=== PATIENT | female | born 1940 | race American Indian/Alaskan Native ===

== ENCOUNTER → 2017-11-28 09:44 | Outpatient (CLI) | payer MEDICARE, OTHER, SELFPAY ==
[2017-11-28 11:09] LABS: BUN Creatinine Ratio 22.9 (6-22); Blood Urea Nitrogen 48 mg/dL (7-17); Calcium 8.4 mg/dL (8.4-10.2); Carbon Dioxide 23 mmol/L (22-32); Chloride 111 mmol/L (98-107); Glucose 69 mg/dL (80-110); HEMOLYSIS < 15 (0-50); Potassium 4.3 mmol/L (3.4-5.1); Sodium 144 mmol/L (137-145)
== END ==
PROVIDERS: Family Provider Family Medicine; PCP Family Medicine; Visit Provider Family Medicine
DX: N18.4 Chronic kidney disease, stage 4 (severe) (principal); R60.9 Edema, unspecified
CPT/HCPCS: 36415; 80048; 83880

== ENCOUNTER → 2017-12-05 11:03 | Outpatient (CLI) | payer MEDICARE, OTHER, SELFPAY ==
--- NOTE | 2017-12-05 11:09 | DI.RAD.S_ITS ---
PROCEDURE: XR CHEST 2V INDICATIONS: 77 year-old female with shortness of breath and edema. TECHNIQUE: 2 views of the chest were acquired. COMPARISON: [facility], , ABDOMEN ACUTE SERIES, 02/17/2011, 0:07. [facility], CHEST 2 VIEW, 02/04/2008, 16:14. [facility], CHEST 2 VIEW, 12/01/2006, 13:10. FINDINGS: Surgical changes and devices: None. Lungs and pleura: There is trace basal left pleural effusion. Lungs appear clear, without pulmonary edema. No pneumothorax. Mediastinum: Mediastinal contours are normal. There is newly apparent cardiomegaly. There is aortic atherosclerosis. Bones and chest wall: No suspicious bony abnormalities. Soft tissues appear unremarkable. IMPRESSION: 1. Cardiomegaly appears new since 2010. 2. Trace basal left pleural effusion is of uncertain etiology. Dictated by: David Ford M.D. on 12/05/2017 at 12:22 Approved by: David Ford M.D. on 12/05/2017 at 12:24
== END ==
PROVIDERS: Family Provider Family Medicine; PCP Family Medicine; Visit Provider Family Medicine
DX: R06.02 Shortness of breath (principal); R60.9 Edema, unspecified; I51.7 Cardiomegaly
CPT/HCPCS: 71046

== ENCOUNTER → 2018-01-02 11:14 | Outpatient (CLI) | payer MEDICARE, OTHER, SELFPAY ==
[2018-01-02 12:27] LABS: Add Manual Diff / Slide Review NO; Basophils Percent Auto 1.1 % (0-2); Hematocrit 37.5 % (36-46); Hemoglobin 12.5 g/dL (12.0-16.0); Lymphocytes Percent Auto 18.2 % (25-40); Mean Corpuscular HGB Conc 33.2 % (30-36); Mean Corpuscular Hemoglobin 30.1 PG (26-34); Mean Corpuscular Volume 90.5 fL (80-100); Monocytes Percent Auto 10.8 % (3-14); Neutrophils Absolute Auto 4100 /uL (3000-5900); Neutrophils Percent Auto 65.9 % (50-75); Platelet Count 259 X10^3/uL (150-400); Red Blood Cell Count 4.14 X10^6/uL (4.0-5.2); White Blood Cell Count 6.2 X10^3/uL (4.5-11.0)
[2018-01-02 13:04] LABS: Alanine Aminotransferase 36 IU/L (9-52); Albumin 2.8 g/dL (3.5-5.0); Alkaline Phosphatase 88 U/L (38-126); Aspartate Aminotransferase 46 IU/L (14-36); BUN Creatinine Ratio 12.7 (6-22); Bilirubin Total 0.5 mg/dL (0.2-1.3); Blood Urea Nitrogen 38 mg/dL (7-17); Calcium 8.1 mg/dL (8.4-10.2); Carbon Dioxide 28 mmol/L (22-32); Chloride 108 mmol/L (98-107); Estimated Glomerular Filt Rate 15.2 mL/min (>60); Globulin 2.7 g/dL (1.7-4.1); Glucose 70 mg/dL (80-110); HEMOLYSIS < 15 (0-50); Phosphorous 4.8 mg/dL (2.8-4.1); Potassium 3.3 mmol/L (3.4-5.1); Sodium 144 mmol/L (137-145); Total Protein 5.5 g/dL (6.3-8.2)
[2018-01-02 15:13] LABS: Vitamin D 25 Hydroxy (D3) < 13.0 ng/mL (30.0-100.0)
[2018-01-03 15:23] LABS: Parathyroid Hormone Int 163 pg/mL (14-64)
== END ==
PROVIDERS: PCP Family Medicine; Visit Provider Family Medicine
DX: R63.5 Abnormal weight gain (principal); E11.9 Type 2 diabetes mellitus without complications; J44.9 Chronic obstructive pulmonary disease, unspecified; N18.4 Chronic kidney disease, stage 4 (severe); I10 Essential (primary) hypertension
CPT/HCPCS: 36415; 80053; 82306; 83880; 83970; 84100; 85025

== ENCOUNTER → 2018-01-03 13:16 | Outpatient (CLI) | payer MEDICARE, OTHER, SELFPAY ==
--- NOTE | 2018-01-03 13:20 | DI.ECHO.S_ITS ---
[facility]---------+ [facility] +---------+ : : [address] : : : : [id number] : : : : Phone: [phone] Echocardiogram Report + + :Name: DOMINIC TARANGO Study Date: 01/03/2018 Height: 59 in : :[facility] Weight: 294 lb : : Gender: Female BSA: 2.2 m2 : :: 1940 Age: 77 yrs BP: 160/80 mmHg: :Reason For Study: Cardiomegaly : : Performed By: Vania Rodriguez : :Referring: NAGI APODACA : + + Interpretation Summary Sinus bradycardia; heart rate is 48-54 bpm. Normal LV size and wall thickness. Normal wall motion and LV systolic function. EF is 60-65%. stage I diastolic dysfunction. Moderate biatrial enlargement Otherwise normal chamber sizes. Aortic sclerosis without stenosis. Mild MAC with normal mitral valve leaflets; mild associated mitral regurgitation. Compared to prior study 11/14/2008 , sinus bradycardia is new. Procedure: A two-dimensional transthoracic echocardiogram with color flow and Doppler was performed. The study quality was technically adequate. Comparison is made with the echocardiogram of 11-14-08. The heart rate ranged between 49-62 bpm during the study. Left Ventricle: The left ventricle is normal in size, wall thickness, and systolic function without any focal wall motion abnormalities. The ejection fraction is estimated to be 60-65%. Right Ventricle: The right ventricle grossly appears normal in size with probable normal systolic function. Atria: The left atrium is moderately dilated. The right atrium is moderately dilated. A patent foramen ovale is suspected. Mitral Valve: The mitral valve leaflets appear mildly thickened, but open well. There is mild mitral regurgitation. Aortic Valve: There is moderate aortic valve sclerosis. Leaflet mobility is mildly reduced. The calculated aortic valve area is 1.4 cm2. The peak aortic velocity is 2.1 m/sec. The aortic valve mean gradient is 10 mmHg. Severity ratio is 0.58. No aortic regurgitation is present. Tricuspid Valve: The tricuspid valve is normal in structure and function. There is trace tricuspid regurgitation. The right ventricular systolic pressure is estimated at 37 mmHg assuming a right atrial pressure of 3 mm Hg. Pulmonic Valve: The pulmonic valve is not well visualized. There is trace pulmonic regurgitation. Great Vessels: The aortic root is normal size. The ascending aorta is at the upper limits of normal in size. The IVC is of normal diameter and collapses greater than 50% with a sniff. This suggests a low right atrial pressure of 3 mm Hg. Pericardium/ Pleura There is no pericardial effusion. There is no pleural effusion. MMode/2D Measurements & Calculations LVIDd: 5.0 cm LVOT diam: 2.0 cm LVIDs: 3.1 cm Ao root diam: 3.0 cm FS: 38.8 % Aortic Jxn: 2.7 cm EPSS: 0.98 cm asc Aorta Diam: 3.4 cm IVSd: 0.96 cm Ao Arch Diam (Prox Trans): 2.2 cm LVPWd: 0.98 cm LV starr. diameter/BSA (cm/m^2): 2.3 LV sys. diameter/BSA (cm/m^2): 1.4 LA dimension: 4.0 cm RA long axis: 5.9 cm LA A2 area: 29.0 cm2 RA area: 26.3 cm2 LA A4 area: 28.0 cm2 RA vol: 99.8 ml LA length (vol): 6.7 cm RA : 46.0 ml/m2 LA vol: 102.4 ml IVC diam: 1.3 cm LA vol index: 47.1 ml/m2 RVDd major: 5.4 cm RVD1 (basal): 4.0 cm RVD2 (mid): 3.5 cm Doppler Measurements & Calculations Ao V2 max: 209.4 cm/sec LVOT Max Bismark: 93.1 cm/sec Ao V2 mean: 141.1 cm/sec LV V1 max P.5 mmHg Ao max P.5 mmHg LV V1 VTI: 32.5 cm Ao mean P.5 mmHg SHANNA(I,D): 1.9 cm2 Ao V2 VTI: 56.3 cm SHANNA(V,D): 1.4 cm2 sev ratio: 0.58 SHANNA indexed to BSA (cm^2/m^2): 0.86 MV E max bismark: 105.0 cm/sec TR max bismark: 290.1 cm/sec MV A max bismark: 129.7 cm/sec TR max P.7 mmHg MV E/A: 0.81 PA V2 max: 103.2 cm/sec Med Peak E' Bismark: 2.9 cm/sec PA V2 mean: 64.9 cm/sec E/E' med: 35.8 PA mean P.0 mmHg Lat Peak E' Bismark: 3.9 cm/sec PA Accel Time: 0.16 sec E/E' lat: 27.0 E/e' average: 31.4 MV dec time: 0.14 sec MV P1/2t: 44.4 msec MR ERO: 0.12 cm2 MV P1/2t max bismark: 105.3 cm/sec MR flow rate: 67.3 cm3/sec MVA(P1/2t): 5.0 cm2 MR PISA radius: 0.53 cm Reading Physician:06:58 PM
[2018-01-03 14:00] LABS: Appearance Urine UA CLEAR; Bilirubin Urine UA NEGATIVE (NEGATIVE); Color Urine UA YELLOW; Glucose Urine UA NEGATIVE (Normal); Ketones Urine UA NEGATIVE (NEGATIVE); Leukocyte Esterase Urine UA 1+ (NEGATIVE); Nitrite Urine UA POSITIVE (Negative); Occult Blood Urine UA 1+ (Negative); Protein Urine UA 3+ (Negative); Urobilinogen Urine UA 0.2 E.U./dL (0.2); pH Urine UA 6.5 (4.5-8.0)
[2018-01-03 14:33] LABS: RBC Urine 1-5/HPF (0-5/HPF); Squamous Epithelial Cell Urine 1-5 /HPF; WBC Urine 10-30/HPF (0-5/HPF)
[2018-01-03 14:34] LABS: Bacteria Urine Many (>30); Culture Indicated Urine Specimen Cultured
[2018-01-03 15:06] LABS: Creatinine Urine Random 37.8 mg/dL
[2018-01-03 15:55] LABS: Protein (Total) Urine Random 901 mg/dL (0-12); Protein Creatinine Ratio Urine 23.83 GRAM/24H
== END ==
PROVIDERS: Family Provider Family Medicine; PCP Family Medicine; Visit Provider Family Medicine
DX: I08.0 Rheumatic disorders of both mitral and aortic valves (principal); R06.02 Shortness of breath; R63.5 Abnormal weight gain; E11.22 Type 2 diabetes mellitus with diabetic chronic kidney disease; I12.9 Hypertensive chronic kidney disease with stage 1 through stage 4 chronic kidney disease, or unspecified chronic kidney disease; N18.4 Chronic kidney disease, stage 4 (severe)
CPT/HCPCS: 81001; 82570; 84156; 87077; 87086; 87186; 93306

== ENCOUNTER 2018-01-13 15:34 | Inpatient (IN) | payer MEDICARE, OTHER, SELFPAY ==
[2018-01-13] VITALS (7 sets, daily range): BP systolic 131–176; BP diastolic 60–93; PULSE 59–94; RESP 16–18; TEMP 36.7–37; O2SAT 94–98; BMI 57.4
--- NOTE | 2018-01-13 16:05 | DI.RAD.S_ITS ---
PROCEDURE: XR CHEST 2V INDICATIONS: weakness TECHNIQUE: 2 views of the chest were acquired. COMPARISON: [facility], CR, CHEST 2 VIEW, 02/04/2008, 16:14. [facility], CT, THORAX WITHOUT CONTRAST, 05/20/2015, 15:16. [facility], CR, XR CHEST 2V, 12/05/2017, 10:51. FINDINGS: Surgical changes and devices: None. Lungs and pleura: Bibasilar opacities may be infiltrate or atelectasis. No pleural effusions or pneumothorax. Mediastinum: Mediastinal contours are normal. Heart size is normal. Bones and chest wall: No suspicious bony abnormalities. Soft tissues appear unremarkable. IMPRESSION: Bibasilar infiltrates or atelectasis. Dictated by: Stefania House M.D. on 01/13/2018 at 16:19 Approved by: Stefania House M.D. on 01/13/2018 at 16:23
[2018-01-13 16:17] LABS: INR 1.1 (0.9-1.3); Prothrombin Time 12.1 SECONDS (10.1-12.7)
[2018-01-13 16:23] LABS: Alanine Aminotransferase 140 IU/L (9-52); Albumin 2.7 g/dL (3.5-5.0); Alkaline Phosphatase 88 U/L (38-126); Aspartate Aminotransferase 148 IU/L (14-36); BUN Creatinine Ratio 15.5 (6-22); Bilirubin Total 0.5 mg/dL (0.2-1.3); Blood Urea Nitrogen 62 mg/dL (7-17); Calcium 8.3 mg/dL (8.4-10.2); Carbon Dioxide 28 mmol/L (22-32); Chloride 106 mmol/L (98-107); Estimated Glomerular Filt Rate 10.9 mL/min (>60); Globulin 2.7 g/dL (1.7-4.1); Glucose 114 mg/dL (80-110); HEMOLYSIS < 15 (0-50); Lipase 212 U/L (23-300); Magnesium 1.5 mg/dL (1.6-2.3); Potassium 3.6 mmol/L (3.4-5.1); Sodium 144 mmol/L (137-145); Total Protein 5.4 g/dL (6.3-8.2)
[2018-01-13 16:24] LABS: Add Manual Diff / Slide Review NO; Basophils Percent Auto 0.8 % (0-2); Eosinophils Percent Auto 1.5 % (2-4); Hematocrit 36.8 % (36-46); Hemoglobin 12.2 g/dL (12.0-16.0); Lymphocytes Percent Auto 9.8 % (25-40); Mean Corpuscular HGB Conc 33.2 % (30-36); Mean Corpuscular Hemoglobin 30.1 PG (26-34); Mean Corpuscular Volume 90.7 fL (80-100); Monocytes Percent Auto 10.1 % (3-14); Neutrophils Absolute Auto 7600 /uL (3000-5900); Neutrophils Percent Auto 77.8 % (50-75); Platelet Count 293 X10^3/uL (150-400); Red Blood Cell Count 4.06 X10^6/uL (4.0-5.2); Red Cell Distribution Width 14.1 % (11.6-14.8); White Blood Cell Count 9.7 X10^3/uL (4.5-11.0)
[2018-01-13 16:34] LABS: Troponin I 0.115 ng/mL (0.01-0.034)
[2018-01-13] MEDS: ALBUTEROL/IPRATROPIUM 3 ML AMPUL INH (16:34)
[2018-01-13] MEDS: FUROSEMIDE 100 MG/10 ML VIAL 60 MG IV (16:36)
[2018-01-13 16:47] LABS: Creatine Kinase 840 U/L (30-135)
[2018-01-13 16:57] LABS: Lactate (Lactic Acid) 1.2 mmol/L (0.7-2.1)
[2018-01-13 17:08] LABS: Procalcitonin 0.57 ng/mL (<0.5)
[2018-01-13 17:19] LABS: Thyroid Stimulating Hormone 2.84 uIU/mL (0.47-4.68)
--- NOTE | 2018-01-13 17:52 | ED.WEAKNESS ---
HPI - Weakness General Chief complaint: Weakness Stated complaint: Generalized Weakness History of Present Illness HPI Narrative: HPI 77-year-old morbidly obese female with CHF, COPD, presents for evaluation of weakness without further localizing symptoms, patient fell 4 days ago, spent 3 days on the ground, withstood up by EMS, declined transport, and then one day later slid from her bed and was unable to stand again, after which she was transported to the emergency department; during the time the patient spent on the ground she did not take her Lasix. Notes recent weight gain, denies fevers, chills, cough, dysuria, urinary frequency. History obtained from: patient. M/S/F/SocHx notable for: please see HPI; remainder reviewed with patient and in chart. ROS: Negative constitutional, eye, cardiovascular, pulmonary, GI, , MSK, skin, neurologic, psychiatric, endocrine unless noted in the HPI. Exam Gen: Pleasant, non-toxic appearing, resting comfortably. HEENT: Normocephalic, atraumatic Resp: diffuse fine expiratory wheezing with superimposed coarse wet breath sounds, mildly increased work of breathing. Card: Regular rate and rhythm with no murmurs rubs or gallops. No JVD. 1+ bilateral pedal edema. GI: Nontender to palpation throughout all quadrants. Nondistended. : No CVA tenderness to percussion bilaterally. No suprapubic tenderness or palpable masses. MSK: No visible deformities, strength and tone within normal limits. Skin: bilateral distal shins/calves with approximately 1.5 x 1.5 cm superficial skin tears, otherwise normal color with no visible lesions. Neuro: Gen AO x 3, no facial asymmetry, no gaze preference, no slurring of speech. Pupils equal and reactive, EOMI, no facial asymmetry, no nystagmus, phonation intact, SCM 5/5 bilaterally. Cerebellar: bilateral upper extremities without dysmetria. Motor: bilateral 5/5 brokerage purchase and sale clerk strength and intact hand sensation to touch, bilateral 5/5 dorsiflexion/plantarflexion and foot sensation intact to touch. Psych: Mood and affect appropriate. Labs / Imaging (pertinent): WBC 9.7, HB 12.2, PT/INR 1.1, sodium 144, potassium 3.6, creatinine 4.00, magnesium 1.5, AST 148, ALT 140, troponin 0.155, BNP 606, CK 840, Procalcitonin 0.57, TSH 2.84 UA pending CXR: bibasler or infiltrates or atelectasis. EKG: SR at 60 BPM, [place] 158 msec, no new ST segment changes, new LBBB, or T-wave changes that would suggest acute ischemia. MDM Previous chart, nursing note, and vitals reviewed. A: 77-year-old morbidly obese female with CHF, COPD, presents for evaluation of weakness without further localizing symptoms, patient fell 4 days ago, spent 3 days on the ground, withstood up by EMS, declined transport, and then one day later slid from her bed and was unable to stand again, after which she was transported to the emergency department; during the time the patient spent on the ground she did not take her Lasix. Evaluation: * CVA: Examination without evidence of focal neuro deficit and history without evidence of resolved focal neuro deficit making stroke or TIA unlikely. * ACS/UA: Doubt ACS given a nonischemic EKG, mild troponin elevation, suspect demand mediated. Aspirin given. * UTI: pending * Pneumonia: patient without clear cough, no focal infiltrate, elevated procalcitonin, blood cultures drawn, and one dose Levaquin given. * Heme/Lytes/Thyroid: CBC, BMP, and TSH are clinically within normal limits. Patient with hypomagnesemia. 2 g given. * Hypothermia: temperature within normal limits. * Rhabdomyolysis - CK elevated, however not in range for rhabdomyolysis. * MURALI - worsening renal failure. * CHF - coarse wet breath sounds, worsening edema, patient with mist Lasix doses. Given 60 mg IV. * COPD - wheezing, one DuoNeb given. Disposition: admitted for further care. Impression: MURALI, CHF exacerbation, hypomagnesemia, COPD exacerbation, type II NSTEMI. (please reference below for remainder of encounter information) Critical Care Time Organ system(s): Cardiopulmonary Intervention: Assessment of the patient, interpretation of studies, communication related to patient care. Time: 30 minutes were spent directly related to patient care exclusive of separately billed procedures. Related Data Home Medications Medication Instructions Recorded Confirmed COLCHICINE (#COLCHICINE) 0.6 mg PO HS #0 02/16/11 ACAI DAVEY EXTRACT (Acai Davey) 500 mg PO #0 10/04/11 B.ANI/L.ACI/L.ROSIE/L.PLAN/L.RHIANNA 1 cap PO #0 10/04/11 (Probiotic Formula Capsule) CHOLECALCIFEROL (VITAMIN D3) 400 unit PO QDAY #0 10/04/11 (Vitamin D3) Calcium Carbonate/Vitamin D 1 cap PO #0 10/04/11 (#CALCIUM) Coenzyme Q10 (#CO Q-10) #0 10/04/11 Fish Oil (Fish Oil 500 MG Softgel) 500 mg PO #0 10/04/11 MULTIVITAMIN (#ATOXIMETIN-B) 1 cap PO #0 10/04/11 RED YEAST RICE (CHOLESTEROL 600 mg PO #0 10/04/11 MANAGEMENT) ASPIRIN (#ASPIRIN) 81 mg PO QDAY #0 10/27/11 Bupropion Hydrochloride 200 mg PO QDAY #0 10/27/11 (WELLBUTRIN) albuterol sulfate [Proventil HFA] 1 puff INH PRN #0 10/27/11 furosemide 40 mg PO QDAY #0 10/27/11 glipizide 10 mg PO BID #0 10/27/11 hydroxyzine HCl 25 mg PO HS #0 10/27/11 simvastatin 40 mg PO HS #0 10/27/11 Allergies Allergy/AdvReac Type Severity Reaction Status Date / Time Penicillins [PENICILLINS] Allergy Mild Unverified 01/13/18 15:44 Sulfa (Sulfonamide Allergy Mild Unverified 01/13/18 15:44 Antibiotics) [SULFA (SULFONAMIDE ANTIBIOTICS)] [facility] Surgical History Status post surgery (04/29/08) Status post surgery (10/27/11) Social History Smoking Status: Never smoker Exam Initial Vital Signs Initial Vital Signs: Vital Signs Temperature 98.6 F 01/13/18 15:44 Pulse Rate 87 01/13/18 15:44 Respiratory Rate 16 01/13/18 15:44 Blood Pressure 131/93 H 01/13/18 15:44 Pulse Oximetry 96 01/13/18 15:44 Course Orders Ordered: ED Orders 01/13/18 15:50 B Type Natriuretic Peptide Stat Complete Blood Count AUTO DIFF Stat Comprehensive Metabolic Panel Stat Creatine Kinase Stat Lipase Stat Magnesium Stat Procalcitonin Stat Prothrombin Time INR Stat Thyroid Stimulating Hormone Stat Troponin I Stat 01/13/18 16:05 XR chest 2V Stat 01/13/18 16:06 Urinalysis and Microscopic Stat EKG-12 Lead Stat 01/13/18 16:30 Lactate (Lactic Acid) Stat 01/13/18 17:51 Blood Culture Stat Magnesium Sulfate (Magnesium Sulfate) 2 gm in 50 mls @ 25 mls/hr IV NOW ONE Stop: 01/13/18 19:50 Levofloxacin (Levaquin) 750 mg in 150 mls @ 100 mls/hr IV NOW ONE Stop: 01/13/18 19:20 Discontinued Medications Albuterol/Ipratropium (Duoneb) 3 ml INH NOW ONE Stop: 01/13/18 16:06 Last Admin: 01/13/18 16:34 Dose: 3 ml Aspirin (Aspirin Chew) 324 mg PO NOW ONE Stop: 01/13/18 17:52 Furosemide (Lasix) 60 mg IV NOW ONE Stop: 01/13/18 16:06 Last Admin: 01/13/18 16:36 Dose: 60 mg Vital Signs - 8 hr 01/13/18 15:44 01/13/18 16:00 Temperature 98.6 F Pulse Rate 87 Respiratory Rate 16 Blood Pressure 131/93 H Blood Pressure [Right Arm] 148/60 H Pulse Oximetry 96 97 MDM - Weakness Lab Data Result diagrams: 01/13/18 15:50 01/13/18 15:50 Lab Results 01/13/18 01/13/18 01/13/18 Range/Units 15:50 15:50 15:50 WBC 9.7 (4.5-11.0) X10^3/uL RBC 4.06 (4.0-5.2) X10^6/uL Hgb 12.2 (12.0-16.0) g/dL Hct 36.8 (36-46) % MCV 90.7 (80-100) fL MCH 30.1 (26-34) PG MCHC 33.2 (30-36) % RDW 14.1 (11.6-14.8) % Plt Count 293 (150-400) X10^3/uL Neut % (Auto) 77.8 H (50-75) % Lymph % (Auto) 9.8 L (25-40) % [place] % (Auto) 10.1 (3-14) % Eos % (Auto) 1.5 L (2-4) % Baso % (Auto) 0.8 (0-2) % Neut # (Auto) 7600 H (1224-3813) /uL PT (10.1-12.7) SECONDS INR (0.9-1.3) Sodium (137-145) mmol/L Potassium (3.4-5.1) mmol/L Chloride (98-107) mmol/L Carbon Dioxide (22-32) mmol/L BUN (7-17) mg/dL Creatinine (0.52-1.04) mg/dL Estimated GFR (>60) mL/min BUN/Creatinine Ratio (6-22) Glucose (80-110) mg/dL Lactate (0.7-2.1) mmol/L Calcium (8.4-10.2) mg/dL Magnesium (1.6-2.3) mg/dL Total Bilirubin (0.2-1.3) mg/dL AST (14-36) IU/L ALT (9-52) IU/L Alkaline Phosphatase (38-126) U/L Total Creatine Kinase 840 H (30-135) U/L Troponin I (0.01-0.034) ng/mL B-Natriuretic Peptide 606.0 H (<100) Total Protein (6.3-8.2) g/dL Albumin (3.5-5.0) g/dL Globulin (1.7-4.1) g/dL Albumin/Globulin Ratio (1.0-2.8) Lipase (23-300) U/L Procalcitonin (<0.5) ng/mL TSH (0.47-4.68) uIU/mL 01/13/18 01/13/18 01/13/18 Range/Units 15:50 15:50 15:50 WBC (4.5-11.0) X10^3/uL RBC (4.0-5.2) X10^6/uL Hgb (12.0-16.0) g/dL Hct (36-46) % MCV (80-100) fL MCH (26-34) PG MCHC (30-36) % RDW (11.6-14.8) % Plt Count (150-400) X10^3/uL Neut % (Auto) (50-75) % Lymph % (Auto) (25-40) % [place] % (Auto) (3-14) % Eos % (Auto) (2-4) % Baso % (Auto) (0-2) % Neut # (Auto) (2867-5431) /uL PT 12.1 (10.1-12.7) SECONDS INR 1.1 (0.9-1.3) Sodium 144 (137-145) mmol/L Potassium 3.6 (3.4-5.1) mmol/L Chloride 106 (98-107) mmol/L Carbon Dioxide 28 (22-32) mmol/L BUN 62 H (7-17) mg/dL Creatinine 4.00 H (0.52-1.04) mg/dL Estimated GFR 10.9 L (>60) mL/min BUN/Creatinine Ratio 15.5 (6-22) Glucose 114 H (80-110) mg/dL Lactate (0.7-2.1) mmol/L Calcium 8.3 L (8.4-10.2) mg/dL Magnesium 1.5 L (1.6-2.3) mg/dL Total Bilirubin 0.5 (0.2-1.3) mg/dL AST 148 H (14-36) IU/L ALT 140 H (9-52) IU/L Alkaline Phosphatase 88 (38-126) U/L Total Creatine Kinase (30-135) U/L Troponin I 0.115 H (0.01-0.034) ng/mL B-Natriuretic Peptide (<100) Total Protein 5.4 L (6.3-8.2) g/dL Albumin 2.7 L (3.5-5.0) g/dL Globulin 2.7 (1.7-4.1) g/dL Albumin/Globulin Ratio 1.0 (1.0-2.8) Lipase 212 (23-300) U/L Procalcitonin 0.57 H (<0.5) ng/mL TSH (0.47-4.68) uIU/mL 01/13/18 01/13/18 Range/Units 15:50 16:30 WBC (4.5-11.0) X10^3/uL RBC (4.0-5.2) X10^6/uL Hgb (12.0-16.0) g/dL Hct (36-46) % MCV (80-100) fL MCH (26-34) PG MCHC (30-36) % RDW (11.6-14.8) % Plt Count (150-400) X10^3/uL Neut % (Auto) (50-75) % Lymph % (Auto) (25-40) % [place] % (Auto) (3-14) % Eos % (Auto) (2-4) % Baso % (Auto) (0-2) % Neut # (Auto) (5569-8928) /uL PT (10.1-12.7) SECONDS INR (0.9-1.3) Sodium (137-145) mmol/L Potassium (3.4-5.1) mmol/L Chloride (98-107) mmol/L Carbon Dioxide (22-32) mmol/L BUN (7-17) mg/dL Creatinine (0.52-1.04) mg/dL Estimated GFR (>60) mL/min BUN/Creatinine Ratio (6-22) Glucose (80-110) mg/dL Lactate 1.2 (0.7-2.1) mmol/L Calcium (8.4-10.2) mg/dL Magnesium (1.6-2.3) mg/dL Total Bilirubin (0.2-1.3) mg/dL AST (14-36) IU/L ALT (9-52) IU/L Alkaline Phosphatase (38-126) U/L Total Creatine Kinase (30-135) U/L Troponin I (0.01-0.034) ng/mL B-Natriuretic Peptide (<100) Total Protein (6.3-8.2) g/dL Albumin (3.5-5.0) g/dL Globulin (1.7-4.1) g/dL Albumin/Globulin Ratio (1.0-2.8) Lipase (23-300) U/L Procalcitonin (<0.5) ng/mL TSH 2.84 (0.47-4.68) uIU/mL Discharge Plan Departure Patient Disposition: Admitted As Inpatient Clinical Impression: Weakness
--- NOTE | 2018-01-13 18:17 | P.HP_ITS ---
History of Present Illness Chief complaint: Generalized Weakness Narrative: The patient is a 77-year-old female who presents on admission with weakness, elevated CK, acute on chronic renal insufficiency The patient was in her usual state of health until Monday night when she states that she slipped and fell while trying to get into her bed which is said to be high level. She was unable to get up for 3 days. She states that she was able to finally crawled to her front door and called her niece's . He had a neighbor tried to get her were unsuccessful and called 911. The evaluated her and put her in her chair. Patient states that she was having difficulty standing up panic and fell out of the chair. This was night. EMS was again called on this occasion she was put in her bed. The patient has a weakness continued and has increased she has felt fatigued and has resolved EMS was called again and she was brought to the ED. in ED WBC revealed it to be within normal limits hemoglobin was 12.2 hematocrit 36.8 platelet count 293. Her creatinine was 4 and this is up from 3 approximately 10 days ago which is up from 2.10 on 11/28/2017. Her CK was 840. As a result of her weakness acute on chronic renal insufficiency, rhabdomyolysis she has been admitted for further evaluation and management Patient History Medical History COPD (chronic obstructive pulmonary disease) (Acute) Diabetes mellitus type 2 in obese (Acute) Gout (Acute) Hypercholesterolemia (Acute) Morbid obesity (Acute) Tuberculosis (Acute) Surgical History History of nephrectomy (Acute) S/P tonsillectomy and adenoidectomy (Acute) Status post surgery (04/29/08) Status post surgery (10/27/11) Family & Social History Social History: Patient was alone never been . Nonsmoker drinks wine rarely. She is a . Stella Turner this is a person she calls from [employer] [facility] [employer] Safety & Behavioral: Feels Safe in Current Yes Environment Tobacco & Substance use: Non smoker and drinks wine rarely Smoking Status Never smoker Substance Use Type does not use Meds Home Medications Medication Instructions Recorded Confirmed Type COLCHICINE (#COLCHICINE) 0.6 mg PO HS #0 02/16/11 01/13/18 History Fish Oil (Fish Oil 500 MG Softgel) 500 mg PO DAILY #0 10/04/11 01/13/18 History MULTIVITAMIN (#ATOXIMETIN-B) 1 cap PO DAILY #0 10/04/11 01/13/18 History ASPIRIN (#ASPIRIN) 81 mg PO QDAY #0 10/27/11 01/13/18 History Bupropion Hydrochloride 200 mg PO QDAY #0 10/27/11 01/13/18 History (WELLBUTRIN) albuterol sulfate [Proventil HFA] 1 puff INH PRN #0 10/27/11 01/13/18 History furosemide 40 mg PO QDAY #0 10/27/11 01/13/18 History Allergies Allergy/AdvReac Type Severity Reaction Status Date / Time Penicillins [PENICILLINS] Allergy Mild Unverified 01/13/18 15:44 Sulfa (Sulfonamide Allergy Mild Unverified 01/13/18 15:44 Antibiotics) [SULFA (SULFONAMIDE ANTIBIOTICS)] Review of Systems Review of Systems All systems reviewed & are unremarkable except as noted in HPI and below Exam Vital Signs (past 8 hours): - 01/13/18 15:44 01/13/18 16:00 Temperature 98.6 F Pulse Rate 87 Respiratory Rate 16 Blood Pressure 131/93 H Blood Pressure [Right Arm] 148/60 H Pulse Oximetry 96 97 Oxygen Delivery Method Room Air Narrative Exam Narrative: General: NAD HEENT normocephalic atraumatic extraocular movements intact pupils are equal round reactive fundi not visualized clear were clear Oropharynx was clear Neck obese supple without thyromegaly bruits or jugular venous distention Lungs decreased breath sounds Heart regular rhythm S1-S2 was normal there were no loose sees rubs or murmurs present Abdomen obese benign bowel sounds active Extremities bilateral lower extremity bandages in place Neurologic grossly physiologic except for generalized weakness especially lower extremities Psychiatric mood and affect were normal Objective Labs Result Diagrams: 01/13/18 15:50 01/13/18 15:50 Labs: Laboratory Results - last 24 hr 01/13/18 01/13/18 01/13/18 15:50 15:50 15:50 WBC 9.7 RBC 4.06 Hgb 12.2 Hct 36.8 MCV 90.7 MCH 30.1 MCHC 33.2 RDW 14.1 Plt Count 293 Neut % (Auto) 77.8 H Lymph % (Auto) 9.8 L [place] % (Auto) 10.1 Eos % (Auto) 1.5 L Baso % (Auto) 0.8 Neut # (Auto) 7600 H PT INR Sodium Potassium Chloride Carbon Dioxide BUN Creatinine Estimated GFR BUN/Creatinine Ratio Glucose Lactate Calcium Magnesium Total Bilirubin AST ALT Alkaline Phosphatase Total Creatine Kinase 840 H Troponin I B-Natriuretic Peptide 606.0 H Total Protein Albumin Globulin Albumin/Globulin Ratio Lipase Procalcitonin TSH 01/13/18 01/13/18 01/13/18 15:50 15:50 15:50 WBC RBC Hgb Hct MCV MCH MCHC RDW Plt Count Neut % (Auto) Lymph % (Auto) [place] % (Auto) Eos % (Auto) Baso % (Auto) Neut # (Auto) PT 12.1 INR 1.1 Sodium 144 Potassium 3.6 Chloride 106 Carbon Dioxide 28 BUN 62 H Creatinine 4.00 H Estimated GFR 10.9 L BUN/Creatinine Ratio 15.5 Glucose 114 H Lactate Calcium 8.3 L Magnesium 1.5 L Total Bilirubin 0.5 AST 148 H ALT 140 H Alkaline Phosphatase 88 Total Creatine Kinase Troponin I 0.115 H B-Natriuretic Peptide Total Protein 5.4 L Albumin 2.7 L Globulin 2.7 Albumin/Globulin Ratio 1.0 Lipase 212 Procalcitonin 0.57 H TSH 01/13/18 01/13/18 15:50 16:30 WBC RBC Hgb Hct MCV MCH MCHC RDW Plt Count Neut % (Auto) Lymph % (Auto) [place] % (Auto) Eos % (Auto) Baso % (Auto) Neut # (Auto) PT INR Sodium Potassium Chloride Carbon Dioxide BUN Creatinine Estimated GFR BUN/Creatinine Ratio Glucose Lactate 1.2 Calcium Magnesium Total Bilirubin AST ALT Alkaline Phosphatase Total Creatine Kinase Troponin I B-Natriuretic Peptide Total Protein Albumin Globulin Albumin/Globulin Ratio Lipase Procalcitonin TSH 2.84 Assessment & Plan Plan: Assessment/Plan Narrative: 1. RHABDOMYOLYSIS Serial CKs IV fluids at 125 cc/hour 2. ACUTE ON CHRONIC KIDNEY DISEASE A void nephro toxic IV fluid resuscitation Serial BMPs Ultrasound of the kidney 3. GOUT Check uric acid level Maintain on home meds 4. HYPERLIPIDEMIA Check lipid panel Maintain her on her home med 5. DIABETES MELLITUS TYPE 2 ADA diet Sliding scale insulin medium scale 6. COPD DuoNeb treatments q.4h as needed wheezing or shortness of breath 7. MORBID OBESITY
[2018-01-13] MEDS: levoFLOXacin 750 MG/150 ML PIGGYBACK 100 MG IV (18:36)
[2018-01-13] MEDS: ASPIRIN 81 MG TAB 324 MG PO (18:36)
--- NOTE | 2018-01-13 19:18 | PC.NURSE ---
Pt sitting up in bed talking on cell phone. speaking in full sentences. denies CP or SOB. Intermittant non productive wet cough. Pt given lasix about 35 min ago. Pt has yet to void. ABX infusing for possible pneumonia and elevated procalcitonin. AAox3 with NAD and in good spirits Report called to LASHELL [employer] support professional caregiver. Advised Levaquin and Magnesium are incompatible. Pt has [address], hard stick. Shaggy advised that he will start the Mag that was ordered in the ED due to incompatibility. Pt transferred upstairs in stretcher by DEJAN Medina.
[2018-01-13 19:41] LABS: Phosphorous 3.9 mg/dL (2.8-4.1)
[2018-01-13] MEDS: MAGNESIUM SULFATE 2 GM/50 ML PIGGYBACK IV (20:32)
[2018-01-13] MEDS: SODIUM CHLORIDE 0.9% 1,000 ML 125 ML IV ×2 (20:34→22:20)
[2018-01-13 20:55] LABS: RBC Urine None Seen (0-5/HPF)
[2018-01-13] MEDS: HEPARIN 5,000 UNIT/ML VIAL 5000 UNIT SUBCUT (21:04)
[2018-01-13 21:14] LABS: Appearance Urine UA CLEAR; Bilirubin Urine UA 1+ (NEGATIVE); Color Urine UA YELLOW; Glucose Urine UA NEGATIVE (Normal); Ketones Urine UA TRACE (NEGATIVE); Leukocyte Esterase Urine UA 1+ (NEGATIVE); Nitrite Urine UA Negative (Negative); Occult Blood Urine UA 3+ (Negative); Protein Urine UA 3+ (Negative); Urobilinogen Urine UA 0.2 E.U./dL (0.2)
[2018-01-13 21:35] LABS: Bacteria Urine Many (>30); Culture Indicated Urine Specimen Cultured; WBC Urine 5-10/HPF (0-5/HPF)
[2018-01-13 21:37] LABS: Ictotest Urine Negative (Negative)
--- NOTE | 2018-01-13 22:19 | RT ---
BRONCHODILATOR NOT NEEDED AT THIS TIME.
[2018-01-14] VITALS (9 sets, daily range): BP systolic 154–194; BP diastolic 60–89; PULSE 58–84; RESP 18–21; TEMP 35.8–36.8; O2SAT 94–98
--- NOTE | 2018-01-14 01:53 | PC.NURSE ---
Dye[employer] Worker Note: 0100: Awake, alert, oriented X3. Vital signs stable. Pt denies pain or discomfort. Ankle dressings intact, clean and dry. NS infusing at 125cc/hr.
[2018-01-14 05:43] LABS: Add Manual Diff / Slide Review NO; Basophils Percent Auto 0.7 % (0-2); Eosinophils Percent Auto 3.4 % (2-4); Hematocrit 32.2 % (36-46); Hemoglobin 10.8 g/dL (12.0-16.0); Mean Corpuscular HGB Conc 33.6 % (30-36); Mean Corpuscular Hemoglobin 30.6 PG (26-34); Monocytes Percent Auto 11.9 % (3-14); Neutrophils Absolute Auto 5000 /uL (3000-5900); Platelet Count 228 X10^3/uL (150-400); Red Blood Cell Count 3.54 X10^6/uL (4.0-5.2); Red Cell Distribution Width 13.9 % (11.6-14.8); White Blood Cell Count 7.1 X10^3/uL (4.5-11.0)
[2018-01-14 05:54] LABS: BUN Creatinine Ratio 14.9 (6-22); Blood Urea Nitrogen 61 mg/dL (7-17); Calcium 7.8 mg/dL (8.4-10.2); Carbon Dioxide 28 mmol/L (22-32); Chloride 107 mmol/L (98-107); Cholesterol 81 mg/dL (140-199); Estimated Glomerular Filt Rate 10.6 mL/min (>60); Glucose 82 mg/dL (80-110); HDL Cholesterol 22 mg/dL (40-60); HEMOLYSIS < 15 (0-50); LDL Cholesterol Calculated 25 mg/dL (<100); Potassium 3.5 mmol/L (3.4-5.1); Sodium 142 mmol/L (137-145); Triglycerides 170 mg/dL (35-150); Uric Acid 10.3 mg/dL (2.5-6.2)
[2018-01-14] MEDS: PANTOPRAZOLE 20 MG TABLET PO (05:56)
[2018-01-14 06:20] LABS: Thyroid Stimulating Hormone 1.53 uIU/mL (0.47-4.68)
[2018-01-14 08:37] LABS: Creatine Kinase 413 U/L (30-135)
[2018-01-14 09:26] LABS: Lactate (Lactic Acid) 0.8 mmol/L (0.7-2.1)
[2018-01-14] MEDS: SODIUM CHLORIDE 0.9% 1,000 ML 125 ML IV ×2 (09:43→21:55)
[2018-01-14] MEDS: CARVEDILOL 6.25 MG TABLET PO ×2 (09:43→20:24)
[2018-01-14] MEDS: HEPARIN 5,000 UNIT/ML VIAL 5000 UNIT SUBCUT ×2 (09:43→20:25)
--- NOTE | 2018-01-14 10:12 | PT.IIE ---
Surgical History (Last Reviewed 01/14/18 @ 09:11 by Emeli Bolanos, PT) History of nephrectomy (Acute) S/P tonsillectomy and adenoidectomy (Acute) Status post surgery (04/29/08) Status post surgery (10/27/11) Medical History (Last Reviewed 01/14/18 @ 09:11 by Emeli Bolanos, PT) COPD (chronic obstructive pulmonary disease) (Acute) Diabetes mellitus type 2 in obese (Acute) Gout (Acute) Hypercholesterolemia (Acute) Morbid obesity (Acute) Tuberculosis (Acute) Physical Therapy Inpatient Evaluation/Re-Eval M1 PT/OT-IP Prior Functional Status Start: 01/14/18 13:38 Freq: NEEDED Status: Active Protocol: Document 01/14/18 10:12 DLM (Rec: 01/14/18 13:52 DL [id number]) Medical Review Prior Functional Status Medical History Reviewed Yes Diet/Fluid Consistency Regular Communication WNL Mobility and Gait Independent transfers, uses a power wheelchair Prior Functional Level (Other details) attending cardiac rehab, uses the Nu-stepper Social History Household Members none Living Arrangements House Number of Floors (Floors) One Floor Home Equipment Four Wheel Walker Power Wheelchair/Scooter Employment Status Retired M2 PT-IP Current Condition Start: 01/14/18 13:38 Freq: NEEDED Status: Active Protocol: Document 01/14/18 10:12 DLM (Rec: 01/14/18 13:52 DLM [id number]) Physical Therapy Current Condition Current Condition Evaluation Date 01/14/18 Treatment Diagnosis weakness Onset Date 01/13/18 Precautions Other Precautions bashir catheter, incontinent of stool, fall risk M3 PT-IP Subjective Start: 01/14/18 13:38 Freq: NEEDED Status: Active Protocol: Document 01/14/18 10:12 DLM (Rec: 01/14/18 13:52 DL [id number]) Subjective Physical Therapy Visit Type Type Initial Evaluation Visit Start Time 09:30 Visit Stop Time 10:12 Total Visit Minutes 42 Physical Therapy Visit Comments Patient Comments She wants to be able to go back home, she does not know why her legs will not hold her up. She was getting stronger using the Nu-stepper in cardiac rehab. Therapy Pain Assessment Pain When Pain Assessed At Rest Pain Present Pain Present Denied Pain M4 PT-IP Mobility and Gait Start: 01/14/18 13:38 Freq: NEEDED Status: Active Protocol: Document 01/14/18 10:12 DLM (Rec: 01/14/18 13:52 [facility] [id number]) PT-Bed Mobility Assessment Rolling Type of Rolling Bilateral Level of Assist Moderate Assistance Supine to Sit Supine to Sit Moderate Assistance Sit to Supine Sit to Supine Moderate Assistance Scooting Scooting to Edge of Bed Moderate Assistance Scooting Up and Down in Bed Dependent PT-Transfer Assessment Sit to and From Stand Sit to and from Stand 2 Person Assistance Equipment Transfer Assistive Device Mechanical Lift Orthotic/Prosthetic Devices or Brace: No Transfers Transfer Destination Chair Transfer Technique Mechanical Lift Transfer Ability Level of Assist 2 Person Assistance Comments Mobility Comments pt declined to stand due to LE 's too weak, she agreed to get up using the power sit-stand, transfered up to recliner, pt left up in recliner, assisted nursing to get her cleaned up due to incontinent of very loose stool, pt reports she goes when she coughs PT-Balance Assessment Sitting Balance and Reactions Static Sitting Balance Ability Normal Dynamic Sitting Balance Ability Normal M5 PT-IP Objective Assessments Start: 01/14/18 13:38 Freq: NEEDED Status: Active Protocol: Document 01/14/18 10:12 DLM (Rec: 01/14/18 13:52 [facility] [id number]) Orientation Orientation/Cognition Level of Alertness Alert Orientation Name Age Birthday Month Date Year Day of Week Place Situation Language Function Ability No Deficits Noted Safety Awareness Understands Safety Issues Memory Description No Deficits Noted Comments she describes feeling afraid of falling again Gross Range of Motion Upper Extremity ROM Assessment Within Functional Limits Lower Extremity ROM Assessment Within Functional Limits Strength Upper Extremity Strength Assessment Within Functional Limits Lower Extremity Strength Assessment Bilaterally Impaired Hip 3+/5 Knee 4/5 Ankle DF 4+/5 Comments Strength Comments generalized weakness in LE's Coordination Assessment Gross Coordination Gross Coordination WNL Sensation Assessment Sensation Gross Sensation WNL Muscle Tone Muscle Tone WNL Yes M7 PT-IP Assessment and Plan Start: 01/14/18 13:38 Freq: NEEDED Status: Active Protocol: Document 01/14/18 10:12 DLM (Rec: 01/14/18 13:52 [facility] [id number]) PT Summary Assessment and Plan Potential Rehabilitation Potential Good Status of Condition at Evaluation Evolving Summary Impairments Strength Balance Bed Mobility Transfers Gait Activity Tolerance Assessment Summary Pt is below her baseline for functional mobility. She reports a significant decline in her LE strength where her LE's will no longer hold her up when she tries to stand. Pt only agreed to get up this visit with use of power sit- stand due to fear of falling and weakness. Pt gets short of breath standing with the power sit-stand to assist. She is not safe to return home alone at this time. She needs to be safe in transfers to return home safely. She uses her power wheelchair for her other mobility. Goals Bed Mobility Goal Minimal Assistance Transfer Goal Moderate Assistance Front Wheeled Walker Other Goals Static stand with FWW and min assist x 2 min. Days to Meet Goals 4 Frequency of Treatment Frequency Of Treatment Twice a Day Treatment Plan Physical Therapy Treatment Plan Bed Mobility Training Transfer Training Gait Training Therapeutic Exercise Balance Retraining Discharge Planning Neuromuscular Re-ed Recommendations To Nursing Amount of Assist Needed 2 Person Assist Power Sit-Stand Discharge Recommendations PT Discharge Recommendations SNF Rehab Other Discharge Recommendations pt wants to discharge home
[2018-01-14] MEDS: NYSTATIN POWDER 30 GM 1 APPLIC TOP ×2 (12:12→20:24)
--- NOTE | 2018-01-14 12:24 | CM.DANOTE ---
Addendum entered by MONIK Ridley 01/14/18 12:34: add: patient uses a power wheelchair and walker to get around her house. Original Note: Discharge Planning/Care Management CM Discharge Assessment Start: 01/14/18 12:23 Freq: Status: Active Protocol: Document 01/14/18 12:23 (Rec: 01/14/18 12:24 [id number]) Discharge Planning Assessment History Provided By Patient Medical Record Has Patient been admitted in last 30 No days? Prior Living Arrangements House Household Members none Type of transporation used prior to Relies on Others admit Independent with ADL's Yes Is patient alert and oriented? Yes Needs Assistance With Home Chores / Shopping Discharge Plan Home Transportation Arrangement Niece will pick pulling machine operator patient. Review Status In Process Next Review Type Continued Stay Review Reviewed EMR: patient had fell and was on floor was 3 days then fell again before coming to ED. Met with patient: Patient [place] [address] with a niece who is a neighbor. Patient states she is independent in all ADLs but does have someone help her in the home every once in a while. Patient reports difficulty in finding people to help her who do not steal from her. Discussed safety concerns related to her falls. Patient has since sign up to receive a phone call everyday from [facility] life assist. She stated the roller skater told her they would check on her if she doesn't pick pulling machine operator her phone. Patient will also look into getting a life alert. Patient stated she will talk to her niece about checking in on her more often as well. Patient will have her niece or her brother transport her home and does not anticipate any discharge needs or concerns. Patient plans to keep her phone in a pouch around her neck when she gets home until she receives a life alert. Patient provided with lifeline brochure and will follow up with the [facility] for financial assistance.
--- NOTE | 2018-01-14 13:15 | PT.IPTN ---
Current Diagnoses Traumatic ischemia of muscle, initial encounter (01/13/18) Physical Therapy Treatment Note M2 PT-IP Current Condition Start: 01/14/18 13:38 Freq: NEEDED Status: Active Protocol: Document 01/14/18 10:12 DLM (Rec: 01/14/18 13:52 DL [id number]) Physical Therapy Current Condition Current Condition Evaluation Date 01/14/18 Treatment Diagnosis weakness Onset Date 01/13/18 Precautions Other Precautions bashir catheter, incontinent of stool, fall risk M3 PT-IP Subjective Start: 01/14/18 13:38 Freq: NEEDED Status: Active Protocol: Document 01/14/18 13:52 DLM (Rec: 01/14/18 13:57 DLM [id number]) Subjective Physical Therapy Visit Type Type Treatment Note Visit Start Time 13:00 Visit Stop Time 13:15 Total Visit Minutes 15 Number of REGISTERED ASSOCIATE Visits 0 Physical Therapy Visit Comments Patient Comments She is tired and wants to go back to bed Therapy Pain Assessment Pain When Pain Assessed At Rest Pain Present Pain Present Denied Pain M4 PT-IP Mobility and Gait Start: 01/14/18 13:38 Freq: NEEDED Status: Active Protocol: Document 01/14/18 13:52 DLM (Rec: 01/14/18 13:57 DLM [id number]) PT-Bed Mobility Assessment Rolling Type of Rolling Bilateral Level of Assist Moderate Assistance Sit to Supine Sit to Supine Moderate Assistance Maximum Assistance Scooting Scooting Up and Down in Bed Dependent PT-Transfer Assessment Sit to and From Stand Sit to and from Stand 2 Person Assistance Equipment Transfer Assistive Device Mechanical Lift Transfers Transfer Destination Bed Transfer Technique Mechanical Lift Transfer Ability Level of Assist 2 Person Assistance Comments Mobility Comments power sit-stand used for this treatment, static standing also included with the power sit-stand for LE weight bearing and functional strengthening. Pt gets short of breath standing even with power sit-stand assist. PT-Balance Assessment Sitting Balance and Reactions Static Sitting Balance Ability Normal Dynamic Sitting Balance Ability Good M5 PT-IP Objective Assessments Start: 01/14/18 13:38 Freq: NEEDED Status: Active Protocol: Document 01/14/18 10:12 DLM (Rec: 01/14/18 13:52 DLM [id number]) Orientation Orientation/Cognition Level of Alertness Alert Orientation Name Age Birthday Month Date Year Day of Week Place Situation Language Function Ability No Deficits Noted Safety Awareness Understands Safety Issues Memory Description No Deficits Noted Comments she describes feeling afraid of falling again Gross Range of Motion Upper Extremity ROM Assessment Within Functional Limits Lower Extremity ROM Assessment Within Functional Limits Strength Upper Extremity Strength Assessment Within Functional Limits Lower Extremity Strength Assessment Bilaterally Impaired Hip 3+/5 Knee 4/5 Ankle DF 4+/5 Comments Strength Comments generalized weakness in LE's Coordination Assessment Gross Coordination Gross Coordination WNL Sensation Assessment Sensation Gross Sensation WNL Muscle Tone Muscle Tone WNL Yes M7 PT-IP Assessment and Plan Start: 01/14/18 13:38 Freq: NEEDED Status: Active Protocol: Document 01/14/18 13:52 DLM (Rec: 01/14/18 13:57 DLM [id number]) PT Summary Assessment and Plan Summary Progress Towards Goals Slow Progress due to Activity Tolerance Assessment Summary She continues to present with generalized weakness and fear of falling. Power sit-stand used for standing and transfers. She is fatigued this visit from sitting up in the recliner. Her goal is to get strong enough to return home at discharge. Frequency of Treatment Frequency Of Treatment Twice a Day Treatment Plan Other Recommendations and Next Treatment continue current plan Focus Recommendations To Nursing Amount of Assist Needed 2 Person Assist Power Sit-Stand Discharge Recommendations PT Discharge Recommendations SNF Rehab Other Discharge Recommendations pt wants to discharge home
--- NOTE | 2018-01-14 14:15 | PC.NURSE ---
shift note Met with pt at start of shift. BG within normal limits. Held diabetes meds. Pt is 2- 3 p assist with sit to stand. Has had 2 loose, watery stools. Notified MD of stools and pt's UA results of gram - bacilli. ABX ordered. Multiple skin issues, please see physical assessment. MD notified, Nystatin ordered.
[2018-01-14] MEDS: levoFLOXacin 250 MG/50 ML PIGGYBACK 50 MG IV (16:45)
--- NOTE | 2018-01-14 20:07 | P.PN_ITS ---
Subjective Interval history: Patient states that she feels essentially the same as on admission. She still feels weak and tired. Exam Vital Signs (past 8 hours): - 01/14/18 12:00 01/14/18 15:53 01/14/18 17:38 Temperature 97.9 F 96.5 F L Pulse Rate 84 65 Respiratory Rate 20 20 Blood Pressure 169/72 H 160/74 H Pulse Oximetry 98 94 94 Oxygen Delivery Method Room Air Narrative Exam Narrative: General: Sitting up in chair NAD; morbidly obese HEENT normocephalic atraumatic extraocular movements intact pupils are equal round reactive fundi not visualized clear were clear Oropharynx was clear Neck obese supple without thyromegaly bruits or jugular venous distention Lungs decreased breath sounds Heart regular rhythm S1-S2 was normal there were no loose sees rubs or murmurs present Abdomen obese benign bowel sounds active Extremities bilateral lower extremity bandages in place Neurologic grossly physiologic Psychiatric mood and affect were normal Objective Labs Result Diagrams: 01/14/18 05:20 01/14/18 05:20 Labs: Laboratory Results - last 24 hr 01/13/18 01/13/18 01/14/18 20:54 20:54 05:20 WBC 7.1 RBC 3.54 L Hgb 10.8 L Hct 32.2 L MCV 91.0 MCH 30.6 MCHC 33.6 RDW 13.9 Plt Count 228 Neut % (Auto) 70.0 Lymph % (Auto) 14.0 L Millard % (Auto) 11.9 Eos % (Auto) 3.4 Baso % (Auto) 0.7 Neut # (Auto) 5000 Sodium Potassium Chloride Carbon Dioxide BUN Creatinine Estimated GFR BUN/Creatinine Ratio Glucose Lactate Uric Acid Calcium Magnesium Total Creatine Kinase Triglycerides Cholesterol LDL Cholesterol, Calc HDL Cholesterol TSH Urine Color Yellow Urine Appearance Clear Urine pH 5.0 Ur Specific [place] 1.020 Urine Protein 3+ H Urine Glucose (UA) Negative Urine Ketones Trace H Urine Occult Blood 3+ H Urine Nitrate Negative Urine Bilirubin 1+ H Urine Ictotest Negative Urine Urobilinogen 0.2 Ur Leukocyte Esterase 1+ H Urine RBC None seen Urine WBC 5-10/hpf H Urine Bacteria Many (>30) H Ur Culture Indicated? Specimen cultured Micro UA Comment Not Reportable 01/14/18 01/14/18 01/14/18 05:20 05:20 05:20 WBC RBC Hgb Hct MCV MCH MCHC RDW Plt Count Neut % (Auto) Lymph % (Auto) Millard % (Auto) Eos % (Auto) Baso % (Auto) Neut # (Auto) Sodium 142 Potassium 3.5 Chloride 107 Carbon Dioxide 28 BUN 61 H Creatinine 4.10 H Estimated GFR 10.6 L BUN/Creatinine Ratio 14.9 Glucose 82 Lactate Uric Acid 10.3 H Calcium 7.8 L Magnesium 2.0 Total Creatine Kinase 413 H D Triglycerides 170 H Cholesterol 81 L LDL Cholesterol, Calc 25 HDL Cholesterol 22 L TSH 1.53 D Urine Color Urine Appearance Urine pH Ur Specific [place] Urine Protein Urine Glucose (UA) Urine Ketones Urine Occult Blood Urine Nitrate Urine Bilirubin Urine Ictotest Urine Urobilinogen Ur Leukocyte Esterase Urine RBC Urine WBC Urine Bacteria Ur Culture Indicated? Micro UA Comment 01/14/18 09:02 WBC RBC Hgb Hct MCV MCH MCHC RDW Plt Count Neut % (Auto) Lymph % (Auto) Millard % (Auto) Eos % (Auto) Baso % (Auto) Neut # (Auto) Sodium Potassium Chloride Carbon Dioxide BUN Creatinine Estimated GFR BUN/Creatinine Ratio Glucose Lactate 0.8 Uric Acid Calcium Magnesium Total Creatine Kinase Triglycerides Cholesterol LDL Cholesterol, Calc HDL Cholesterol TSH Urine Color Urine Appearance Urine pH Ur Specific [place] Urine Protein Urine Glucose (UA) Urine Ketones Urine Occult Blood Urine Nitrate Urine Bilirubin Urine Ictotest Urine Urobilinogen Ur Leukocyte Esterase Urine RBC Urine WBC Urine Bacteria Ur Culture Indicated? Micro UA Comment Assessment & Plan Plan: Assessment/Plan Narrative: 1. RHABDOMYOLYSIS There is improvement in her rhabdomyolysis as her CK is 413 today down from 840 CK ordered for a.m. Continue IV fluids at 125 cc/hour 2. ACUTE ON CHRONIC KIDNEY DISEASE Renal function remains poor with creatinine 4.1 0 today. There has been no improvement will check BMP in a.m. A void nephro toxic Continue IV fluid resuscitation Serial BMPs Ultrasound of the kidney 3. GOUT Check uric acid level her uric acid is 10.3. Her renal insufficiency does not help I will start allopurinol 4. HYPERLIPIDEMIA Check lipid panel Maintain her on her home med 5. DIABETES MELLITUS TYPE 2 ADA diet Sliding scale insulin medium scale 6. COPD DuoNeb treatments q.4h as needed wheezing or shortness of breath 7. MORBID OBESITY
--- NOTE | 2018-01-14 23:42 | PC.NURSE ---
Evening note - Pt output improving. Ankle dressings changed with optifoam dressing and loose gauze roll wrap to secure optifoam to wound sites. Pt tolerated well.
--- NOTE | 2018-01-15 | DI.US.S_ITS ---
PROCEDURE: US RENAL COMPLETE INDICATIONS: HX LEFT NEPHRECTOMY TECHNIQUE: Real-time scanning was performed of the kidneys and bladder, with image documentation. COMPARISON: [facility], CT, ABDOMEN WITHOUT CONTRAST, 05/10/2010, 10:45. FINDINGS: Kidneys: The left kidney is surgically absent. The right kidney measures 13.4 cm in length with cortical thickness of 1.8 cm. Previously described right renal calculi not identified, imaging not well-seen secondary to body habitus. Bladder: Bladder is empty around a Stein catheter. Miscellaneous: No free pelvic fluid. IMPRESSION: Limited study. No right hydronephrosis. Left kidney surgically absent. Urinary bladder empty. Dictated by: Gus Vargas M.D. on 01/15/2018 at 11:29 Approved by: Gus Vargas M.D. on 01/15/2018 at 11:32
[2018-01-15] MEDS: ACETAMINOPHEN 325 MG TABLET 650 MG PO (00:43)
[2018-01-15 03:24] VITALS: BP 190/80; PULSE 59; RESP 19; TEMP 36.6; O2SAT 96
[2018-01-15] MEDS: PANTOPRAZOLE 20 MG TABLET PO (05:28)
[2018-01-15 06:05] LABS: BUN Creatinine Ratio 16.2 (6-22); Blood Urea Nitrogen 60 mg/dL (7-17); Calcium 7.6 mg/dL (8.4-10.2); Carbon Dioxide 28 mmol/L (22-32); Chloride 109 mmol/L (98-107); Creatine Kinase 216 U/L (30-135); Estimated Glomerular Filt Rate 11.9 mL/min (>60); Glucose 80 mg/dL (80-110); HEMOLYSIS < 15 (0-50); Potassium 3.5 mmol/L (3.4-5.1); Sodium 142 mmol/L (137-145)
[2018-01-15] MEDS: SODIUM CHLORIDE 0.9% 1,000 ML 125 ML IV ×3 (06:09→23:23)
[2018-01-15 08:10] VITALS: BP 162/77; PULSE 59; RESP 20; TEMP 36.4; O2SAT 95
[2018-01-15 08:48] VITALS: BP 162/77; PULSE 52
[2018-01-15] MEDS: NYSTATIN POWDER 30 GM 1 APPLIC TOP ×2 (08:54→21:18)
[2018-01-15] MEDS: HEPARIN 5,000 UNIT/ML VIAL 5000 UNIT SUBCUT ×2 (08:55→21:17)
--- NOTE | 2018-01-15 10:27 | PT.IPTN ---
Current Diagnoses Traumatic ischemia of muscle, initial encounter (01/13/18) Physical Therapy Treatment Note M2 PT-IP Current Condition Start: 01/14/18 13:38 Freq: NEEDED Status: Active Protocol: Document 01/15/18 10:20 TMS (Rec: 01/15/18 10:27 TMS [id number]) Physical Therapy Current Condition Current Condition Evaluation Date 01/14/18 Treatment Diagnosis weakness Onset Date 01/13/18 Precautions Other Precautions bashir catheter, incontinent of stool, fall risk M3 PT-IP Subjective Start: 01/14/18 13:38 Freq: NEEDED Status: Active Protocol: Document 01/15/18 10:20 TMS (Rec: 01/15/18 10:27 TMS [email or web address]) Subjective Physical Therapy Visit Type Type Treatment Note Visit Start Time 09:40 Visit Stop Time 10:10 Total Visit Minutes 30 Physical Therapy Visit Comments Patient Comments Pt. sitting on EOB, plesant. States she oozes stool at times, requesting commode. Therapy Pain Assessment Pain When Pain Assessed At Rest Pain Present Pain Present Denied Pain M4 PT-IP Mobility and Gait Start: 01/14/18 13:38 Freq: NEEDED Status: Active Protocol: Document 01/15/18 10:20 TMS (Rec: 01/15/18 10:27 TMS [id number]) PT-Bed Mobility Assessment Sit to Supine Sit to Supine Maximum Assistance 2 Person Assistance Scooting Scooting to Edge of Bed Moderate Assistance Scooting Up and Down in Bed Maximum Assistance PT-Transfer Assessment Sit to and From Stand Sit to and from Stand 2 Person Assistance Equipment Transfer Assistive Device Mechanical Lift Transfers Transfer Destination Bedside Commode Transfer Technique Mechanical Lift Transfer Ability Level of Assist 2 Person Assistance Comments Mobility Comments Power stander bed<>commode transfer, pt. stood in stander for pericare after using commode. M5 PT-IP Objective Assessments Start: 01/14/18 13:38 Freq: NEEDED Status: Active Protocol: Document 01/14/18 10:12 DLM (Rec: 01/14/18 13:52 DLM [id number]) Orientation Orientation/Cognition Level of Alertness Alert Orientation Name Age Birthday Month Date Year Day of Week Place Situation Language Function Ability No Deficits Noted Safety Awareness Understands Safety Issues Memory Description No Deficits Noted Comments she describes feeling afraid of falling again Gross Range of Motion Upper Extremity ROM Assessment Within Functional Limits Lower Extremity ROM Assessment Within Functional Limits Strength Upper Extremity Strength Assessment Within Functional Limits Lower Extremity Strength Assessment Bilaterally Impaired Hip 3+/5 Knee 4/5 Ankle DF 4+/5 Comments Strength Comments generalized weakness in LE's Coordination Assessment Gross Coordination Gross Coordination WNL Sensation Assessment Sensation Gross Sensation WNL Muscle Tone Muscle Tone WNL Yes M7 PT-IP Assessment and Plan Start: 01/14/18 13:38 Freq: NEEDED Status: Active Protocol: Document 01/15/18 10:20 TMS (Rec: 01/15/18 10:27 TMS [id number]) PT Summary Assessment and Plan Summary Assessment Summary Pt. fatigued and SOB with standing in power stander but O2 sats stable, 96%. Pt. felt like she had a work out on her legs with standing in power stander. Frequency of Treatment Frequency Of Treatment Twice a Day Treatment Plan Other Recommendations and Next Treatment continue current plan Focus Recommendations To Nursing Amount of Assist Needed 2 Person Assist Power Sit-Stand Discharge Recommendations PT Discharge Recommendations SNF Rehab
[2018-01-15 11:20] VITALS: BP 184/67; PULSE 51; RESP 16; TEMP 36.6; O2SAT 96
--- NOTE | 2018-01-15 11:20 | OT.IP.EVAL ---
Current Diagnoses Traumatic ischemia of muscle, initial encounter (01/13/18) Past Medical History (Last Reviewed 01/14/18 @ 09:11 by Emeli Bolanos, PT) COPD (chronic obstructive pulmonary disease) (Acute) Diabetes mellitus type 2 in obese (Acute) Gout (Acute) Hypercholesterolemia (Acute) Morbid obesity (Acute) Tuberculosis (Acute) Surgical History (Last Reviewed 01/14/18 @ 09:11 by Emeli Bolanos, PT) History of nephrectomy (Acute) S/P tonsillectomy and adenoidectomy (Acute) Status post surgery (04/29/08) Status post surgery (10/27/11) Occupational Therapy Inpatient Evaluation/Re-Eval M1 PT/OT-IP Prior Functional Status Start: 01/14/18 13:38 Freq: NEEDED Status: Active Protocol: Document 01/14/18 10:12 DLM (Rec: 01/14/18 13:52 DL [id number]) Medical Review Prior Functional Status Medical History Reviewed Yes Diet/Fluid Consistency Regular Communication WNL Mobility and Gait Independent transfers, uses a power wheelchair Prior Functional Level (Other details) attending cardiac rehab, uses the Nu-stepper Social History Household Members none Living Arrangements House Number of Floors (Floors) One Floor Home Equipment Four Wheel Walker Power Wheelchair/Scooter Employment Status Retired M1 PT/OT-IP Prior Functional Status Start: 01/15/18 10:52 Freq: NEEDED Status: Active Protocol: Document 01/15/18 10:58 [facility] (Rec: 01/15/18 11:20 [facility] [id number]) Medical Review Prior Functional Status Medical History Reviewed Yes Diet/Fluid Consistency Regular Communication WNL Mobility and Gait Independent transfers, uses a power wheelchair Prior Functional Level (Other details) attending cardiac rehab, uses the Nu-stepper Social History Household Members none Living Arrangements House Number of Floors (Floors) One Floor Home Equipment Four Wheel Walker Power Wheelchair/Scooter 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 M2 OT-IP Current Condition Start: 01/15/18 10:52 Freq: Status: Active Protocol: Document 01/15/18 10:58 [facility] (Rec: 01/15/18 11:20 [facility] [id number]) Occupational Therapy Current Condition Current Condition Evaluation Date 01/15/18 Treatment Diagnosis Weakness Diagnosis Onset Date 01/13/18 Post Operative Precautions Other Precautions bashir catheter, incontinent of stool, fall risk M3 OT- IP Subjective and Pain Start: 01/15/18 10:52 Freq: Status: Active Protocol: Document 01/15/18 10:58 [facility] (Rec: 01/15/18 11:20 [facility] [id number]) OT- Subjective Occupational Therapy Visit Type Type Initial Evaluation Visit Start Time 09:30 Visit Stop Time 10:10 Total Visit Minutes 40 Occupational Therapy Visit Comments Patient/Caregiver Goals Pt wanting go home when stable . M4 OT- IP ADL's Start: 01/15/18 10:52 Freq: Status: Active Protocol: Document 01/15/18 10:58 [facility] (Rec: 01/15/18 11:20 [facility] [id number]) OT [id number] General Evaluation Self-Feeding Ability Independent OT ADL-Dressing Comments OT Dressing Comments Pt states at home only wears dresses and no underwear as goes to the bathroom often and not able to pull down underwear in time. Pt states goes to the bathroom 3-4 times at night. OT ADL-Toileting General Evaluation Toileting Ability Total Assistance Areas Needing Assistance Empty Catheter or Colostomy Manage Clothing Perform Perineal Hygiene Devices Toileting Assistive Devices Commode Grab Bars Comments OT Toileting Comments Use of power stander to transfer to [facility], dependent for pericare needs. Pt uses toielt aid at home to assist withi hygiene needs. OT ADL-Bathing Comments OT Bathing Comments Pt has tub bench, HHS. M6 OT- IP Functional Cognition Start: 01/15/18 10:52 Freq: Status: Active Protocol: Document 01/15/18 10:58 [facility] (Rec: 01/15/18 11:20 [facility] [id number]) Cognitive Factors Limiting Selfcare Function Cognitive Ability Level of Alertness Alert Patient Orientation Name Age Birthday Month Date Year Day of Week Place Situation Attention Span Ability Capable of Focused Attention Capable of Sustained Attention Ability to Follow Commands Able to Follow Multi-Step Commands Memory Description No Deficits Noted Safety Awareness Underestimates Need for Assistance Cognitive Comments Cognitive Assessment Comments Pt able to follow commands, good saefty awareness, pt however feel that she can go home when stable, however at this time still use of power stander to transfers. OT- Vision and Hearing OT- Hearing Assessment OT- Hearing Assessment WFL OT- Vision Assessment Visual Acuity WFL M7 OT- IP Mobility and Balance Start: 01/15/18 10:52 Freq: Status: Active Protocol: Document 01/15/18 10:58 [facility] (Rec: 01/15/18 11:20 [facility] [id number]) OT- Bed Mobility Assessment Sit to Supine Sit to Supine Assist Moderate Assistance 2 Person Assistance OT-Transfer Assessment Sit to and From Stand Sit to and from Stand Maximum Assistance 2 Person Assistance Transfers Transfer Ability Maximum Assistance 2 Person Assistance Technique Transfer Destination Bed Bedside Commode Devices Transfer Assistive Devices Mechanical Lift Comments Mobility Comments Pt dependent on power stander for transfer at this time. OT- Balance Assessment Sitting Balance and Reactions Static Sitting Balance Ability Normal Dynamic Sitting Balance Ability Normal M8 OT- IP Objective Assessments Start: 01/15/18 10:52 Freq: Status: Active Protocol: Document 01/15/18 10:58 [facility] (Rec: 01/15/18 11:20 [facility] [id number]) OT Gross Range of Motion Upper Extremity Range of Motion Assessment Bilaterally Impaired ROM Impairments BUE decreased AROM for shoulder 0-95 for shoulder flexion, arthritis in hands. OT Strength Comments Strength Comments BUE strength 4-/5 at elbow and hands, 3+/5 in shoulders for availble ROM. OT-Muscle Tone Assessment Muscle Tone WNL Yes M9 OT- IP Assessment and Plan Start: 01/15/18 10:52 Freq: Status: Active Protocol: Document 01/15/18 10:58 [facility] (Rec: 01/15/18 11:20 [facility] [id number]) OT Summary Assessment and Plan Potential Rehabilitation Potential Good Analytic Complexity at Evaluation Moderate Summary OT Impairments Pain Range of Motion Strength Balance Coordination Functional Mobility Dressing Toileting Bathing Toilet Transfers Shower Transfers Progress Towards Goals Slow Progress due to Medical Issues Slow Progress due to Activity Tolerance Assessment Summary Pt MOD complexity not needing extensive assist for all ADl and functional mobility at this time. Pt has not been able to transfer yet and only able to stand therefore would benefit from Skilled rehab stay otherws 02/01 assist as long as caregiver training completed . Goals Grooming Goal Minimal Assistance Dressing Goal Minimal Assistance Toileting Goal Moderate Assistance Bathing Goal Moderate Assistance Toilet Transfer Goal Minimal Assistance Shower Transfer Goal Moderate Assistance Patient/Caregiver Education Goal Caregiver Independent Assisting Patient Days to Meet Goals 7 Frequency of Treatment Frequency Of Treatment Once a Day Treatment Plan OT Treatment Plan ADL Training Functional Mobility Patient/Family Education Discharge Planning Other Treatment Recommendations and Next Transfer with FWW to [facility]SC or Treatment Focus recliner. Discharge Recommendations OT Discharge Recommendations Home with 24/ Assist Home Health SNF Rehab Home Equipment Needs Life Alert
[2018-01-15] MEDS: ALLOPURINOL 300 MG TABLET PO (12:57)
[2018-01-15 16:00] VITALS: BP 181/77; PULSE 62; RESP 20; TEMP 36.3; O2SAT 93
--- NOTE | 2018-01-15 16:46 | PM.PN.1 ---
Subjective Date Patient Seen: 01/15/18 Interval history: Patient reports feeling weak. She reports some mild shortness of breath. Patient has no nausea or significant pain. Exam Vital Signs (past 8 hours): - 01/15/18 08:48 01/15/18 11:20 Temperature 97.9 F Pulse Rate 52 L 51 L Respiratory Rate 16 Blood Pressure 162/77 H 184/67 H Pulse Oximetry 96 Oxygen Delivery Method Room Air Oxygen Flow Rate 0 Narrative Exam Narrative: HEENT: Normocephalic atraumatic, oropharynx is clear, neck is supple Lungs: Coarse breath sounds bilaterally. Cardiac exam: Regular rate with normal S1-S2 Abdomen: Soft nontender nondistended Neuro exam: Non focal Objective Labs Result Diagrams: 01/14/18 05:20 01/15/18 05:34 Labs: Laboratory Results - last 24 hr 01/15/18 05:34 Sodium 142 Potassium 3.5 Chloride 109 H Carbon Dioxide 28 BUN 60 H Creatinine 3.70 H Estimated GFR 11.9 L BUN/Creatinine Ratio 16.2 Glucose 80 Calcium 7.6 L Total Creatine Kinase 216 H Assessment & Plan (1) Morbid obesity: Current visit: Yes Status: Acute (2) Fydxp-ua-veposon renal failure: Problem details: Patient's creatinine is at near her baseline. Will avoid nephrotoxin agents. Hold IV hydration given complaints of shortness of breath Current visit: Yes Status: Acute (3) Rhabdomyolysis: Problem details: Essentially resolved Current visit: Yes Status: Acute (4) Gout: Problem details: Continue colchicine Current visit: Yes Status: Acute Plan: Assessment/Plan Narrative: Physical therapy occupational therapy consultation. Consider discharge home or snf
[2018-01-15] MEDS: levoFLOXacin 250 MG/50 ML PIGGYBACK 50 MG IV (17:32)
[2018-01-15] MEDS: INSULIN ASPART 100 UNIT/ML INSULN PEN SUBCUT (17:33)
[2018-01-15 20:00] VITALS: BP 190/72; PULSE 61; RESP 18; TEMP 36.6; O2SAT 98
[2018-01-15] MEDS: CARVEDILOL 6.25 MG TABLET PO (21:17)
[2018-01-16] VITALS (11 sets, daily range): BP systolic 162–195; BP diastolic 72–95; PULSE 52–89; RESP 16–22; TEMP 36.4–36.7; O2SAT 95–99
[2018-01-16] MEDS: ACETAMINOPHEN 325 MG TABLET 650 MG PO (00:53)
[2018-01-16] MEDS: PANTOPRAZOLE 20 MG TABLET PO (05:46)
[2018-01-16 05:49] LABS: BUN Creatinine Ratio 16.8 (6-22); Blood Urea Nitrogen 57 mg/dL (7-17); Calcium 7.6 mg/dL (8.4-10.2); Carbon Dioxide 25 mmol/L (22-32); Chloride 112 mmol/L (98-107); Estimated Glomerular Filt Rate 13.2 mL/min (>60); Glucose 80 mg/dL (80-110); HEMOLYSIS < 15 (0-50); Potassium 3.6 mmol/L (3.4-5.1); Sodium 143 mmol/L (137-145)
[2018-01-16] MEDS: ALBUTEROL/IPRATROPIUM 3 ML AMPUL INH (07:12)
[2018-01-16] MEDS: CARVEDILOL 6.25 MG TABLET PO ×2 (08:34→21:52)
[2018-01-16] MEDS: HEPARIN 5,000 UNIT/ML VIAL 5000 UNIT SUBCUT ×2 (08:35→21:54)
[2018-01-16] MEDS: NYSTATIN POWDER 30 GM 1 APPLIC TOP ×2 (08:38→22:05)
--- NOTE | 2018-01-16 10:38 | PT.IPTN ---
Current Diagnoses Morbid (severe) obesity due to excess calories (01/13/18) Gout, unspecified (01/13/18) Rhabdomyolysis (01/13/18) Acute kidney failure, unspecified (01/13/18) Chronic kidney disease, unspecified (01/13/18) Traumatic ischemia of muscle, initial encounter (01/13/18) Physical Therapy Treatment Note M2 PT-IP Current Condition Start: 01/14/18 13:38 Freq: NEEDED Status: Active Protocol: Document 01/15/18 10:20 TMS (Rec: 01/15/18 10:27 TMS [id number]) Physical Therapy Current Condition Current Condition Evaluation Date 01/14/18 Treatment Diagnosis weakness Onset Date 01/13/18 Precautions Other Precautions bashir catheter, incontinent of stool, fall risk M3 PT-IP Subjective Start: 01/14/18 13:38 Freq: NEEDED Status: Active Protocol: Document 01/16/18 10:38 MDD (Rec: 01/16/18 12:44 MDD [id number]) Subjective Physical Therapy Visit Type Type Treatment Note Visit Start Time 10:13 Visit Stop Time 10:38 Total Visit Minutes 25 Number of BAROMETERS CALIBRATOR Visits 0 Physical Therapy Visit Comments Patient Comments Pt agreeable to attempting to stand with both PT/OT today. Denies pain, just feels weak. Therapy Pain Assessment Pain Present Pain Present Denied Pain M4 PT-IP Mobility and Gait Start: 01/14/18 13:38 Freq: NEEDED Status: Active Protocol: Document 01/15/18 10:20 TMS (Rec: 01/15/18 10:27 TMS [id number]) PT-Bed Mobility Assessment Sit to Supine Sit to Supine Maximum Assistance 2 Person Assistance Scooting Scooting to Edge of Bed Moderate Assistance Scooting Up and Down in Bed Maximum Assistance PT-Transfer Assessment Sit to and From Stand Sit to and from Stand 2 Person Assistance Equipment Transfer Assistive Device Mechanical Lift Transfers Transfer Destination Bedside Commode Transfer Technique Mechanical Lift Transfer Ability Level of Assist 2 Person Assistance Comments Mobility Comments Power stander bed<>commode transfer, pt. stood in stander for pericare after using commode. M5 PT-IP Objective Assessments Start: 01/14/18 13:38 Freq: NEEDED Status: Active Protocol: Document 01/14/18 10:12 DLM (Rec: 01/14/18 13:52 DLM [id number]) Orientation Orientation/Cognition Level of Alertness Alert Orientation Name Age Birthday Month Date Year Day of Week Place Situation Language Function Ability No Deficits Noted Safety Awareness Understands Safety Issues Memory Description No Deficits Noted Comments she describes feeling afraid of falling again Gross Range of Motion Upper Extremity ROM Assessment Within Functional Limits Lower Extremity ROM Assessment Within Functional Limits Strength Upper Extremity Strength Assessment Within Functional Limits Lower Extremity Strength Assessment Bilaterally Impaired Hip 3+/5 Knee 4/5 Ankle DF 4+/5 Comments Strength Comments generalized weakness in LE's Coordination Assessment Gross Coordination Gross Coordination WNL Sensation Assessment Sensation Gross Sensation WNL Muscle Tone Muscle Tone WNL Yes M6 PT-IP Treatment Start: 01/14/18 13:38 Freq: NEEDED Status: Active Protocol: Document 01/16/18 10:38 MDD (Rec: 01/16/18 12:44 MDD [id number]) Physical Therapy Treatment Exercises Exercises Seated Knee Flexion/Extension Other Treatments Other Treatment Performed Practice scooting to EOB, requires mod Ax 2 for proper positioning. Sit to stand x 3 attempts. Mod A x2 for sit to stand using FWW, pt with very flexed trunk, unable to extend her knees to stand tall . (Pt does have knee flexion contractures B of at least 15 degrees). Pt able to fully offweight buttocks on first two attempts. Unable to offweight on the last attempt. M7 PT-IP Assessment and Plan Start: 01/14/18 13:38 Freq: NEEDED Status: Active Protocol: Document 01/16/18 10:38 MDD (Rec: 01/16/18 12:44 [facility] [id number]) PT Summary Assessment and Plan Potential Rehabilitation Potential Good Status of Condition at Evaluation Stable Summary Impairments ROM Strength Bed Mobility Transfers Activity Tolerance Progress Towards Goals Slow Progress due to Activity Tolerance Assessment Summary Pt fatigued very quickly and became short of breath after each attempt to stand today ( O2 sats normal). Was previously performing squat pivot transfer to and from power w/c at home. Unable to attempt to step today. Pt would benefit from continuing with rehab at a SNF for safest return home. Goals Bed Mobility Goal Minimal Assistance Transfer Goal Moderate Assistance Front Wheeled Walker Other Goals Static stand with FWW and min assist x 2 min. Days to Meet Goals 4 Frequency of Treatment Frequency Of Treatment Twice a Day Treatment Plan Physical Therapy Treatment Plan Bed Mobility Training Transfer Training Gait Training Therapeutic Exercise Balance Retraining Discharge Planning Neuromuscular Re-ed Other Recommendations and Next Treatment continue current plan Focus Recommendations To Nursing Amount of Assist Needed 2 Person Assist Power Sit-Stand Discharge Recommendations PT Discharge Recommendations SNF Rehab Other Discharge Recommendations Pt in agreement with SNF rehab even though she would like to go home.
--- NOTE | 2018-01-16 11:25 | OT.IP.TRT ---
Current Diagnoses Morbid (severe) obesity due to excess calories (01/13/18) Gout, unspecified (01/13/18) Rhabdomyolysis (01/13/18) Acute kidney failure, unspecified (01/13/18) Chronic kidney disease, unspecified (01/13/18) Traumatic ischemia of muscle, initial encounter (01/13/18) Occupational Therapy Treatment Note M2 OT-IP Current Condition Start: 01/15/18 10:52 Freq: Status: Active Protocol: Document 01/15/18 10:58 [facility] (Rec: 01/15/18 11:20 [facility] [id number]) Occupational Therapy Current Condition Current Condition Evaluation Date 01/15/18 Treatment Diagnosis Weakness Diagnosis Onset Date 01/13/18 Post Operative Precautions Other Precautions bashir catheter, incontinent of stool, fall risk M3 OT- IP Subjective and Pain Start: 01/15/18 10:52 Freq: Status: Active Protocol: Document 01/16/18 11:20 [facility] (Rec: 01/16/18 11:25 [facility] [id number]) OT- Subjective Occupational Therapy Visit Type Type Treatment Note Visit Start Time 10:13 Visit Stop Time 10:38 Total Visit Minutes 25 Occupational Therapy Visit Comments Patient Comments Pt willing to try to get up with PT and OT . OT Pain Assessment Pain When Pain Assessed At Rest Pain Present Pain Present Pain Reported M4 OT- IP ADL's Start: 01/15/18 10:52 Freq: Status: Active Protocol: Document 01/15/18 10:58 [facility] (Rec: 01/15/18 11:20 [facility] [id number]) OT [id number]-Dmicyra General Evaluation Self-Feeding Ability Independent OT ADL-Dressing Comments OT Dressing Comments Pt states at home only wears dresses and no underwear as goes to the bathroom often and not able to pull down underwear in time. Pt states goes to the bathroom 3-4 times at night. OT ADL-Toileting General Evaluation Toileting Ability Total Assistance Areas Needing Assistance Empty Catheter or Colostomy Manage Clothing Perform Perineal Hygiene Devices Toileting Assistive Devices Commode Grab Bars Comments OT Toileting Comments Use of power stander to transfer to [facility], dependent for pericare needs. Pt uses toilet aid at home to assist withi hygiene needs. OT ADL-Bathing Comments OT Bathing Comments Pt has tub bench, HHS. M6 OT- IP Functional Cognition Start: 01/15/18 10:52 Freq: Status: Active Protocol: Document 01/15/18 10:58 [facility] (Rec: 01/15/18 11:20 [facility] [id number]) Cognitive Factors Limiting Selfcare Function Cognitive Ability Level of Alertness Alert Patient Orientation Name Age Birthday Month Date Year Day of Week Place Situation Attention Span Ability Capable of Focused Attention Capable of Sustained Attention Ability to Follow Commands Able to Follow Multi-Step Commands Memory Description No Deficits Noted Safety Awareness Underestimates Need for Assistance Cognitive Comments Cognitive Assessment Comments Pt able to follow commands, good saefty awareness, pt however feel that she can go home when stable, however at this time still use of power stander to transfers. OT- Vision and Hearing OT- Hearing Assessment OT- Hearing Assessment WFL OT- Vision Assessment Visual Acuity WFL M7 OT- IP Mobility and Balance Start: 01/15/18 10:52 Freq: Status: Active Protocol: Document 01/16/18 11:20 [facility] (Rec: 01/16/18 11:25 [facility] [id number]) OT-Transfer Assessment Sit to and From Stand Sit to and from Stand Maximum Assistance 2 Person Assistance Comments Mobility Comments Went over technique for sit to stand, able to stand x3 but not able to stand all the way up. Pt very fearful , needing lots of encouragement, however will to try. M8 OT- IP Objective Assessments Start: 01/15/18 10:52 Freq: Status: Active Protocol: Document 01/15/18 10:58 [facility] (Rec: 01/15/18 11:20 [facility] [id number]) OT Gross Range of Motion Upper Extremity Range of Motion Assessment Bilaterally Impaired ROM Impairments BUE decreased AROM for shoulder 0-95 for shoulder flexion, arthritis in hands. OT Strength Comments Strength Comments BUE strength 4-/5 at elbow and hands, 3+/5 in shoulders for availble ROM. OT-Muscle Tone Assessment Muscle Tone WNL Yes M9 OT- IP Assessment and Plan Start: 01/15/18 10:52 Freq: Status: Active Protocol: Document 01/16/18 11:20 [facility] (Rec: 01/16/18 11:25 [facility] [id number]) OT Summary Assessment and Plan Summary Progress Towards Goals Slow Progress due to Medical Issues Slow Progress due to Activity Tolerance Assessment Summary Pt continues to need extensive assist for all needs and use of power stander to transfer at the time. Pt will benefit from skilled rehab. Goals Days to Meet Goals 7 Frequency of Treatment Frequency Of Treatment Once a Day Treatment Plan OT Treatment Plan ADL Training Functional Mobility Patient/Family Education Discharge Planning Other Treatment Recommendations and Next Transfer with FWW to [facility] or Treatment Focus recliner. Discharge Recommendations OT Discharge Recommendations SNF Rehab Home Equipment Needs Life Alert
[2018-01-16] MEDS: ALLOPURINOL 100 MG TABLET PO (13:39)
--- NOTE | 2018-01-16 15:17 | CM.DPC ---
DCP Cont: Per PT/OT, pt is below baseline and requiring much more assist with ambulating and transfers and recommending SNF prior to return home alone. SW met bedside with pt and explained role and discussed current SNF recommendation and pt confirmed that she has no hx of SNF but feels SNF needed at d/c prior to home. SW provided the SNF Choice List and pt reviewing and will call her family and friends to discuss prior to choosing SNF preference. SW updated MD who is bedside now assessing pt. SW completed PASRR for SNF. Plan: SW to follow closely for SNF preference and referral after pt talks with her family and friends this afternoon. PASRR complete. MONIK Scherer
--- NOTE | 2018-01-16 16:05 | PM.PN.1 ---
Subjective Date Patient Seen: 01/16/18 Interval history: Patient reports she continues to be short of breath with minimal activity. She is still weak and requires assistance for mobility. Patient is willing to go to SNF for ongoing care. Exam Vital Signs (past 8 hours): - 01/16/18 11:57 01/16/18 15:33 Temperature 97.8 F 97.6 F Pulse Rate 52 L 58 L Respiratory Rate 16 20 Blood Pressure 188/72 H 193/93 H Pulse Oximetry 98 99 Oxygen Delivery Method Room Air Oxygen Flow Rate 0 Narrative Exam Narrative: Lungs clear to auscultation Cardiac exam regular rate and rhythm Abdomen are obese soft nontender Extremity 2+ edema Skin no lesions Objective Labs Result Diagrams: 01/14/18 05:20 01/16/18 05:25 Labs: Laboratory Results - last 24 hr 01/16/18 05:25 Sodium 143 Potassium 3.6 Chloride 112 H Carbon Dioxide 25 BUN 57 H Creatinine 3.40 H Estimated GFR 13.2 L BUN/Creatinine Ratio 16.8 Glucose 80 Calcium 7.6 L Assessment & Plan (1) Zeztk-kr-hrdmtgr renal failure: Problem details: Patient's creatinine is at near her baseline. Will avoid nephrotoxin agents. Hold IV hydration given complaints of shortness of breath Current visit: Yes Status: Acute (2) Morbid obesity: Problem details: PT OT Current visit: Yes Status: Acute (3) Weakness: Problem details: Continue physical therapy occupational therapy. Plan for sniff placement at discharge Current visit: Yes Status: Acute
--- NOTE | 2018-01-16 17:19 | PT.IPTN ---
Current Diagnoses Morbid (severe) obesity due to excess calories (01/13/18) Gout, unspecified (01/13/18) Rhabdomyolysis (01/13/18) Acute kidney failure, unspecified (01/13/18) Chronic kidney disease, unspecified (01/13/18) Weakness (01/13/18) Traumatic ischemia of muscle, initial encounter (01/13/18) Physical Therapy Treatment Note M2 PT-IP Current Condition Start: 01/14/18 13:38 Freq: NEEDED Status: Active Protocol: Document 01/15/18 10:20 TMS (Rec: 01/15/18 10:27 TMS [id number]) Physical Therapy Current Condition Current Condition Evaluation Date 01/14/18 Treatment Diagnosis weakness Onset Date 01/13/18 Precautions Other Precautions bashir catheter, incontinent of stool, fall risk M3 PT-IP Subjective Start: 01/14/18 13:38 Freq: NEEDED Status: Active Protocol: Document 01/16/18 17:09 DLM (Rec: 01/16/18 17:19 DLM [id number]) Subjective Physical Therapy Visit Type Type Treatment Note Visit Start Time 16:30 Visit Stop Time 17:09 Total Visit Minutes 26 Number of WELL LOGGING CAPTAIN MUD ANALYSIS Visits 0 Physical Therapy Visit Comments Patient Comments she feels a little stronger this visit Therapy Pain Assessment Pain When Pain Assessed At Rest Pain Present Pain Present Denied Pain M4 PT-IP Mobility and Gait Start: 01/14/18 13:38 Freq: NEEDED Status: Active Protocol: Document 01/16/18 17:09 DLM (Rec: 01/16/18 17:19 DLM [id number]) PT-Transfer Assessment Sit to and From Stand Sit to and from Stand 2 Person Assistance Equipment Transfer Assistive Device Mechanical Lift Transfers Transfer Destination Bedside Commode Transfer Technique Mechanical Lift Transfer Ability Level of Assist 2 Person Assistance Comments Mobility Comments static standing in power sit- stand with focus on LE extension to facilitate erect standing, transfer with power sit-stand to bedside commode for BM PT-Balance Assessment Sitting Balance and Reactions Static Sitting Balance Ability Normal Dynamic Sitting Balance Ability Normal M5 PT-IP Objective Assessments Start: 01/14/18 13:38 Freq: NEEDED Status: Active Protocol: Document 01/14/18 10:12 DLM (Rec: 01/14/18 13:52 DLM [id number]) Orientation Orientation/Cognition Level of Alertness Alert Orientation Name Age Birthday Month Date Year Day of Week Place Situation Language Function Ability No Deficits Noted Safety Awareness Understands Safety Issues Memory Description No Deficits Noted Comments she describes feeling afraid of falling again Gross Range of Motion Upper Extremity ROM Assessment Within Functional Limits Lower Extremity ROM Assessment Within Functional Limits Strength Upper Extremity Strength Assessment Within Functional Limits Lower Extremity Strength Assessment Bilaterally Impaired Hip 3+/5 Knee 4/5 Ankle DF 4+/5 Comments Strength Comments generalized weakness in LE's Coordination Assessment Gross Coordination Gross Coordination WNL Sensation Assessment Sensation Gross Sensation WNL Muscle Tone Muscle Tone WNL Yes M6 PT-IP Treatment Start: 01/14/18 13:38 Freq: NEEDED Status: Active Protocol: Document 01/16/18 17:09 DLM (Rec: 01/16/18 17:19 DL [id number]) Physical Therapy Treatment Exercises Exercises Ankle Pumps Gluteal Sets Quad Sets Seated Knee Flexion/Extension Shoulder Flexion Elbow Flexion/Extension Other Treatments Other Treatment Performed seated LE ex- marching bilaterally x 20 reps M7 PT-IP Assessment and Plan Start: 01/14/18 13:38 Freq: NEEDED Status: Active Protocol: Document 01/16/18 17:09 DLM (Rec: 01/16/18 17:19 DL [id number]) PT Summary Assessment and Plan Summary Progress Towards Goals Slow Progress due to Activity Tolerance Assessment Summary She continues to progress very slowly with LE weakness and fear of falling. She feels safer with the power sit-stand and shows good effort to use LE's and facilitate standing when in the sling. She shows good participation in UE/LE seated exercises. Less shortness of breath in standing today. She reports that she is only able to attend cardiopulmonary rehab when she can get a ride which is too frequently not available so her attendance has been intermittent. Frequency of Treatment Frequency Of Treatment Twice a Day Treatment Plan Other Recommendations and Next Treatment focus on LE strength for Focus standing Recommendations To Nursing Amount of Assist Needed 2 Person Assist Power Sit-Stand Discharge Recommendations PT Discharge Recommendations SNF Rehab
[2018-01-16] MEDS: levoFLOXacin 250 MG/50 ML PIGGYBACK 50 MG IV (17:30)
--- NOTE | 2018-01-16 19:34 | PC.NURSE ---
Monica shift- Pt up to BSC with PT and sit to stand darnell, then up to chair. Levo infused to RFA. Denies pain and nausea. 99% RA, JASON zimmer throughout bilat. tele NSR @ 1600. CBG- 114, no insulin required. Pt informed this blurb writer choice of SNF; [facility]. Drsgs CDI to bilat ankles and R great toe. Call light in reach and chair alarm on.
[2018-01-16] MEDS: BECLOMETHASONE 40 MCG INH 10.6 GM 2 PUFF INH (21:54)
[2018-01-17] VITALS (9 sets, daily range): BP systolic 130–213; BP diastolic 76–88; PULSE 54–65; RESP 16–22; TEMP 36–37.4; O2SAT 94–98
--- NOTE | 2018-01-17 05:15 | PC.NURSE ---
Assumed care of pt from outgoing shift at 2300 8-7. Pt asleep at this time. bashir patent and draining. 0005- Pt awake, reports that she is anxious when she falls asleep. she states right when I am about to fall asleep I get really anxious and panic and wake up. BP taken manually. Pt normally has high BP she report. Pt denies pain, turned to left side lying. will continue to monitor. Bed alarm on, side rails up x4 per pt request, belongings and call light within reach. will continue to monitor. 0430- Pt awake, anxious again, chatted with patient trying to find cause. Pt sates she thinks shes just worried about everything. Pt uses call light and waits for assistance. bed alarm on. side rails upx4. Pt belongings and call light within reach. will continue to monitor pt for safety. Pt rotated to back, pillows propped beneath both knees, knees bent for pt comfort. will continue to monitor.
[2018-01-17] MEDS: BECLOMETHASONE 40 MCG INH 10.6 GM 2 PUFF INH ×2 (06:09→17:10)
[2018-01-17] MEDS: PANTOPRAZOLE 20 MG TABLET PO (06:43)
[2018-01-17] MEDS: ALLOPURINOL 100 MG TABLET PO (08:53)
[2018-01-17] MEDS: CARVEDILOL 6.25 MG TABLET PO ×2 (08:53→20:27)
[2018-01-17] MEDS: NYSTATIN POWDER 30 GM 1 APPLIC TOP ×2 (08:54→20:30)
[2018-01-17] MEDS: HEPARIN 5,000 UNIT/ML VIAL 5000 UNIT SUBCUT ×2 (08:54→20:26)
[2018-01-17] MEDS: SODIUM CHLORIDE 0.9% FLUSH 10 ML IV (08:55)
--- NOTE | 2018-01-17 12:13 | OT.IP.TRT ---
Current Diagnoses Morbid (severe) obesity due to excess calories (01/13/18) Gout, unspecified (01/13/18) Rhabdomyolysis (01/13/18) Acute kidney failure, unspecified (01/13/18) Chronic kidney disease, unspecified (01/13/18) Weakness (01/13/18) Traumatic ischemia of muscle, initial encounter (01/13/18) Occupational Therapy Treatment Note M2 OT-IP Current Condition Start: 01/15/18 10:52 Freq: Status: Active Protocol: Document 01/15/18 10:58 [facility] (Rec: 01/15/18 11:20 [facility] [id number]) Occupational Therapy Current Condition Current Condition Evaluation Date 01/15/18 Treatment Diagnosis Weakness Diagnosis Onset Date 01/13/18 Post Operative Precautions Other Precautions bashir catheter, incontinent of stool, fall risk M3 OT- IP Subjective and Pain Start: 01/15/18 10:52 Freq: Status: Active Protocol: Document 01/17/18 12:06 [facility] (Rec: 01/17/18 12:13 [facility] [id number]) OT- Subjective Occupational Therapy Visit Type Type Treatment Note Visit Start Time 11:00 Visit Stop Time 11:30 Total Visit Minutes 30 OT Pain Assessment Pain When Pain Assessed At Rest Pain Present Pain Present Pain Reported Location Back Description Cramping With Movement M4 OT- IP ADL's Start: 01/15/18 10:52 Freq: Status: Active Protocol: Document 01/17/18 12:06 [facility] (Rec: 01/17/18 12:13 [facility] [id number]) OT ADL-Toileting General Evaluation Toileting Ability Total Assistance Areas Needing Assistance Empty Catheter or Colostomy Manage Clothing Perform Perineal Hygiene Devices Toileting Assistive Devices Commode Grab Bars Comments OT Toileting Comments Use of power stander to transfer to BSC, dependent for pericare needs. Pt uses toilet aid at home to assist with hygiene needs. OT ADL-Bathing Comments OT Bathing Comments Use of power stander to transfer to shower chair. M6 OT- IP Functional Cognition Start: 01/15/18 10:52 Freq: Status: Active Protocol: Document 01/17/18 12:06 [facility] (Rec: 01/17/18 12:13 [facility] [id number]) Cognitive Factors Limiting Selfcare Function Cognitive Ability Level of Alertness Alert Patient Orientation Name Age Birthday Month Date Year Day of Week Place Situation Attention Span Ability Capable of Focused Attention Capable of Sustained Attention Ability to Follow Commands Able to Follow Multi-Step Commands Memory Description No Deficits Noted Safety Awareness Underestimates Need for Assistance M7 OT- IP Mobility and Balance Start: 01/15/18 10:52 Freq: Status: Active Protocol: Document 01/17/18 12:06 [facility] (Rec: 01/17/18 12:13 [facility] [id number]) OT-Transfer Assessment Sit to and From Stand Sit to and from Stand Maximum Assistance 2 Person Assistance Devices Transfer Assistive Devices Mechanical Lift M8 OT- IP Objective Assessments Start: 01/15/18 10:52 Freq: Status: Active Protocol: Document 01/15/18 10:58 [facility] (Rec: 01/15/18 11:20 [facility] [id number]) OT Gross Range of Motion Upper Extremity Range of Motion Assessment Bilaterally Impaired ROM Impairments BUE decreased AROM for shoulder 0-95 for shoulder flexion, arthritis in hands. OT Strength Comments Strength Comments BUE strength 4-/5 at elbow and hands, 3+/5 in shoulders for availble ROM. OT-Muscle Tone Assessment Muscle Tone WNL Yes M9 OT- IP Assessment and Plan Start: 01/15/18 10:52 Freq: Status: Active Protocol: Document 01/17/18 12:06 [facility] (Rec: 01/17/18 12:13 [facility] [id number]) OT Summary Assessment and Plan Potential Rehabilitation Potential Good Analytic Complexity at Evaluation Moderate Summary OT Impairments Pain Range of Motion Strength Balance Coordination Functional Mobility Dressing Toileting Bathing Toilet Transfers Shower Transfers Progress Towards Goals Slow Progress due to Medical Issues Slow Progress due to Activity Tolerance Goals Days to Meet Goals 7 Frequency of Treatment Frequency Of Treatment Once a Day Treatment Plan OT Treatment Plan ADL Training Functional Mobility Patient/Family Education Discharge Planning Other Treatment Recommendations and Next [place] [facility] [place] Focus recliner. Discharge Recommendations OT Discharge Recommendations SNF Rehab Home Equipment Needs Life Alert
--- NOTE | 2018-01-17 12:17 | PT.IPTN ---
Current Diagnoses Morbid (severe) obesity due to excess calories (01/13/18) Gout, unspecified (01/13/18) Rhabdomyolysis (01/13/18) Acute kidney failure, unspecified (01/13/18) Chronic kidney disease, unspecified (01/13/18) Weakness (01/13/18) Traumatic ischemia of muscle, initial encounter (01/13/18) Physical Therapy Treatment Note M2 PT-IP Current Condition Start: 01/14/18 13:38 Freq: NEEDED Status: Active Protocol: Document 01/15/18 10:20 TMS (Rec: 01/15/18 10:27 TMS [id number]) Physical Therapy Current Condition Current Condition Evaluation Date 01/14/18 Treatment Diagnosis weakness Onset Date 01/13/18 Precautions Other Precautions bashir catheter, incontinent of stool, fall risk M3 PT-IP Subjective Start: 01/14/18 13:38 Freq: NEEDED Status: Active Protocol: Document 01/17/18 11:30 GGD (Rec: 01/17/18 12:17 GGD [id number]) Subjective Physical Therapy Visit Type Type Treatment Note Visit Start Time 11:00 Visit Stop Time 11:30 Total Visit Minutes 30 Number of ENGINEERING ASSISTANT Visits 1 Physical Therapy Visit Comments Patient Comments Pt states she able to use her legs more. Therapy Pain Assessment Pain When Pain Assessed At Rest Pain Present Pain Present Pain Reported M4 PT-IP Mobility and Gait Start: 01/14/18 13:38 Freq: NEEDED Status: Active Protocol: Document 01/17/18 11:30 GGD (Rec: 01/17/18 12:17 GGD [id number]) PT-Transfer Assessment Sit to and From Stand Sit to and from Stand 2 Person Assistance Equipment Transfer Assistive Device Mechanical Lift Transfers Transfer Destination Bedside Commode Transfer Technique Mechanical Lift Transfer Ability Level of Assist 2 Person Assistance Comments Mobility Comments static standing in power sit- stand with focus on LE extension to facilitate erect standing, transfer with power sit-stand to bedside commode for BM and then to bedside commode in the shower. M5 PT-IP Objective Assessments Start: 01/14/18 13:38 Freq: NEEDED Status: Active Protocol: Document 01/14/18 10:12 DLM (Rec: 01/14/18 13:52 DLM [id number]) Orientation Orientation/Cognition Level of Alertness Alert Orientation Name Age Birthday Month Date Year Day of Week Place Situation Language Function Ability No Deficits Noted Safety Awareness Understands Safety Issues Memory Description No Deficits Noted Comments she describes feeling afraid of falling again Gross Range of Motion Upper Extremity ROM Assessment Within Functional Limits Lower Extremity ROM Assessment Within Functional Limits Strength Upper Extremity Strength Assessment Within Functional Limits Lower Extremity Strength Assessment Bilaterally Impaired Hip 3+/5 Knee 4/5 Ankle DF 4+/5 Comments Strength Comments generalized weakness in LE's Coordination Assessment Gross Coordination Gross Coordination WNL Sensation Assessment Sensation Gross Sensation WNL Muscle Tone Muscle Tone WNL Yes M6 PT-IP Treatment Start: 01/14/18 13:38 Freq: NEEDED Status: Active Protocol: Document 01/16/18 17:09 DLM (Rec: 01/16/18 17:19 DLM [id number]) Physical Therapy Treatment Exercises Exercises Ankle Pumps Gluteal Sets Quad Sets Seated Knee Flexion/Extension Shoulder Flexion Elbow Flexion/Extension Other Treatments Other Treatment Performed seated LE ex- marching bilaterally x 20 reps M7 PT-IP Assessment and Plan Start: 01/14/18 13:38 Freq: NEEDED Status: Active Protocol: Document 01/17/18 11:30 GGD (Rec: 01/17/18 12:17 GGD [id number]) PT Summary Assessment and Plan Summary Assessment Summary Pt is progressing slowly. She did improved tolerance to standing time with sit to stand. Frequency of Treatment Frequency Of Treatment Twice a Day Treatment Plan Other Recommendations and Next Treatment focus on LE strength for Focus standing Recommendations To Nursing Amount of Assist Needed 2 Person Assist Power Sit-Stand Discharge Recommendations PT Discharge Recommendations SNF Rehab
--- NOTE | 2018-01-17 14:35 | CM.DPC ---
DCP Cont: Spoke to patient, she was given a Medicare choice list to review, regarding skilled placement. Patient was also to consult with family. Asked patient if she had made a decision as to which facility she was interested in, and stated that she was interested in [facility]. Gave patient a brochure from [facility] that she could review. Called and spoke to Celi at [facility]. She stated that they do have female Medicare beds available. Did confirm that patient has Medicare/[facility]. Faxed over PASSR, and clinical notes, such as progress, ER visit, and O.T/P.T. notes. P: DCP to continue to assess for discharge, will have availability at facility for tomorrow. Nirali Marrufo RN/Drama Professor
--- NOTE | 2018-01-17 15:44 | PT.IPTN ---
Current Diagnoses Morbid (severe) obesity due to excess calories (01/13/18) Gout, unspecified (01/13/18) Rhabdomyolysis (01/13/18) Acute kidney failure, unspecified (01/13/18) Chronic kidney disease, unspecified (01/13/18) Weakness (01/13/18) Traumatic ischemia of muscle, initial encounter (01/13/18) Physical Therapy Treatment Note M2 PT-IP Current Condition Start: 01/14/18 13:38 Freq: NEEDED Status: Active Protocol: Document 01/15/18 10:20 TMS (Rec: 01/15/18 10:27 TMS [id number]) Physical Therapy Current Condition Current Condition Evaluation Date 01/14/18 Treatment Diagnosis weakness Onset Date 01/13/18 Precautions Other Precautions bashir catheter, incontinent of stool, fall risk M3 PT-IP Subjective Start: 01/14/18 13:38 Freq: NEEDED Status: Active Protocol: Document 01/17/18 15:41 MDD (Rec: 01/17/18 15:44 MDD [id number]) Subjective Physical Therapy Visit Type Type Patient Refusal Notes Pt refused afternoon PT, reporting she was extremely fatigued. ROOM SERVICE WAITER/WAITRESS had just taken vitals and BP was at 213/76 mmHg. PT not advised at this time. M7 PT-IP Assessment and Plan Start: 01/14/18 13:38 Freq: NEEDED Status: Active Protocol: Document 01/17/18 11:30 GGD (Rec: 01/17/18 12:17 GGD [id number]) PT Summary Assessment and Plan Summary Assessment Summary Pt is progressing slowly. She did improved tolerance to standing time with sit to stand. Frequency of Treatment Frequency Of Treatment Twice a Day Treatment Plan Other Recommendations and Next Treatment focus on LE strength for Focus standing Recommendations To Nursing Amount of Assist Needed 2 Person Assist Power Sit-Stand Discharge Recommendations PT Discharge Recommendations SNF Rehab
[2018-01-17] MEDS: ALBUTEROL/IPRATROPIUM 3 ML AMPUL INH (16:11)
--- NOTE | 2018-01-17 16:52 | PM.PN.1 ---
Subjective Date Patient Seen: 01/17/18 Interval history: Overall feels better. Still with some shortness of breath and wheezing Exam Vital Signs (past 8 hours): - 01/17/18 12:00 01/17/18 16:04 01/17/18 16:19 Temperature 97.0 F L 98.4 F Pulse Rate 54 L 65 Respiratory Rate 20 22 Blood Pressure 146/88 H 213/76 H Pulse Oximetry 98 94 98 Oxygen Delivery Method Room Air Oxygen Flow Rate 0 Narrative Exam Narrative: Lungs: Decreased breath sounds with end expiratory wheezing CV: RRR nl Sl S2 2/6SEM Abd: obese/soft/non tender Ext: no edema Skin; no lesions Stein in place Objective Labs Result Diagrams: 01/14/18 05:20 01/16/18 05:25 Assessment & Plan (1) Pvkov-qj-rumwcoc renal failure: Problem details: Patient's creatinine is at near her baseline. Will avoid nephrotoxin agents. Hold IV hydration given complaints of shortness of breath Current visit: Yes Status: Acute (2) Morbid obesity: Problem details: PT OT Current visit: Yes Status: Acute (3) Weakness: Problem details: Continue physical therapy occupational therapy. Plan for sniff placement at discharge Current visit: Yes Status: Acute (4) Rhabdomyolysis: Problem details: Essentially resolved Current visit: Yes Status: Acute
[2018-01-17] MEDS: levoFLOXacin 250 MG/50 ML PIGGYBACK 50 MG IV (17:23)
[2018-01-17] MEDS: ACETAMINOPHEN 325 MG TABLET 650 MG PO (17:29)
--- NOTE | 2018-01-17 23:03 | PC.NURSE ---
NEW IV ATTEMPTED ,UNABLE TO PLACE NEW.CURRENT IV IS FLUSHING ANDHAS NO S/S OF INFILTRATE
[2018-01-18] VITALS (9 sets, daily range): BP systolic 140–197; BP diastolic 73–80; PULSE 55–64; RESP 15–18; TEMP 36.3–36.7; O2SAT 93–100
[2018-01-18] MEDS: ACETAMINOPHEN 325 MG TABLET 650 MG PO (00:15)
--- NOTE | 2018-01-18 01:05 | PC.NURSE ---
Addendum entered by Rain Linares R.N. 01/18/18 06:28: Slept at intervals after receiving pain medication and states pain in back is only 3/10 this morning and left leg pain has resolved. O2 sat dropped to 85% once briefly during the night but quickly rebounded. Sat this morning is 100% on RA. BP remains elevated at 170/80. Has been repositioned using the Soumya tilt function during the night as wants to stay mainly on left side. Original Note: Addendum entered by Rain Linares R.N. 01/18/18 04:43: Patient earlier complained of 8/10 back pain and now additionally left leg pain. Too early to repeat Tylenol so MD contacted and order received for Vicodin. Patient was medicated with Vicodin and now appears to be asleep with FLACC score of 0. Original Note: Patient is alert and oriented. Breath sounds CTA with RA sat of 97%. Does have chronic cough intermittently productive of white and green sputum. States she is SOB with exertion and typically wheezes when first getting up in the morning. States she pulled a muscle in back from coughing and rates pain as 8/10; medicated with Tylenol and warm blanket applied for comfort. HRR; telemetry reading at 0000 was SR. BP elevated at 173/78 with manual cuff; has been trending high and MD is aware per patient. Denies nausea. BT hypoactive. Indwelling catheter is patent with urine clear yellow. Is needing assistance to reposition but prefers to sleep on left side. Noted bruising on abdomen and right upper back. Open abrasion on right lower leg. Dressing to left lower leg is CDI. Abrasions on bilateral great toes with bandaid covering right great toe. 3+ bilateral LE edema. Chronic neuropathy bilateral LE to calf. Reportedly uses [id number] lift when getting out of bed to chair. Fall risk score is high so bed alarm activated.
[2018-01-18] MEDS: HYDROCODONE/ACET 5/325 TABLET 1 TAB PO ×2 (03:29→10:00)
[2018-01-18] MEDS: ALBUTEROL/IPRATROPIUM 3 ML AMPUL INH ×2 (03:38→08:51)
[2018-01-18 05:53] LABS: BUN Creatinine Ratio 19.7 (6-22); Blood Urea Nitrogen 63 mg/dL (7-17); Calcium 7.9 mg/dL (8.4-10.2); Carbon Dioxide 24 mmol/L (22-32); Chloride 109 mmol/L (98-107); Estimated Glomerular Filt Rate 14.1 mL/min (>60); Glucose 96 mg/dL (80-110); HEMOLYSIS < 15 (0-50); Potassium 3.3 mmol/L (3.4-5.1); Sodium 142 mmol/L (137-145)
[2018-01-18] MEDS: PANTOPRAZOLE 20 MG TABLET PO (06:23)
[2018-01-18] MEDS: BECLOMETHASONE 40 MCG INH 10.6 GM 2 PUFF INH (08:47)
[2018-01-18] MEDS: ALLOPURINOL 100 MG TABLET PO (09:57)
[2018-01-18] MEDS: CARVEDILOL 6.25 MG TABLET PO (09:57)
[2018-01-18] MEDS: HEPARIN 5,000 UNIT/ML VIAL 5000 UNIT SUBCUT (09:57)
[2018-01-18] MEDS: NYSTATIN POWDER 30 GM 1 APPLIC TOP (10:04)
--- NOTE | 2018-01-18 12:03 | CM.DPC ---
D/C packet faxed to [facility]. [facility] transport p/u @[phone].
--- NOTE | 2018-01-18 12:06 | CM.DPC ---
DCP Cont: DC to [facility] today. Met w/pt, reviewed DCP. Pt remains aware and agreeable to DCP. Pt aware that Medicare will cover 20 days 100% and there is a strong possibility that [employer] ( pt's secondary coverage) will not p/u any co-pays for SNF stay. Pt is confident about returning home when she feels stronger, family lives next door. Requested that Senior Psych Sales Specialist arrange final details. Arrange BLS for darnell lift/SOB/Morbid Obesity and update RN and [facility] w/time. PASSR Completed, requested this and DC orders/med list be faxed. Updated Celi at [facility] that catheter was being removed, inhaler(s) were going with patient and requested ongoing conversation at [facility] about Medicare/ Health coverage. MONIK Chan
--- NOTE | 2018-01-18 13:53 | PC.NURSE ---
Pt has recieved discharge orders to transfer to the care of [facility]. Pt has been escorted out of the hospital with her belongings via stretcher with [facility] transport staff at approx. 1340. Discharge packet provided to transport staff. Report called and given to [facility] at [facility].
--- NOTE | 2018-01-18 17:55 | P.DS_ITS ---
History of Present Illness Date Patient Seen: 01/18/18 Chief complaint: Generalized Weakness Narrative: The patient is a 77-year-old female who presents on admission with weakness, elevated CK, acute on chronic renal insufficiency The patient was in her usual state of health until Monday night when she states that she slipped and fell while trying to get into her bed which is said to be high level. She was unable to get up for 3 days. She states that she was able to finally crawled to her front door and called her niece's . He had a neighbor tried to get her were unsuccessful and called 911. The evaluated her and put her in her chair. Patient states that she was having difficulty standing up panic and fell out of the chair. This was night. EMS was again called on this occasion she was put in her bed. The patient has a weakness continued and has increased she has felt fatigued and has resolved EMS was called again and she was brought to the ED. in ED WBC revealed it to be within normal limits hemoglobin was 12.2 hematocrit 36.8 platelet count 293. Her creatinine was 4 and this is up from 3 approximately 10 days ago which is up from 2.10 on 11/28/2017. Her CK was 840. As a result of her weakness acute on chronic renal insufficiency, rhabdomyolysis she has been admitted for further evaluation and management Patient History Discharge Providers Date of admission: 01/13/18 18:32 Primary care physician: Renan Coombs MD Consults: 01/13/18 18:27 Consult to Occupational Therapy Evaluate & Treat Comment: Physician Instructions: Evaluate and treat Consult to Physical Therapy Evaluate & Treat Comment: Physician Instructions: Evaluate and Treat Discharge provider: Marija Nassar MD Summary Discharge Diagnosis: Acute on Chronic Renal Failure Rhabdomyolysis Morbid Obesity Gout Hyponatremia Asthma Depression Hospital Course: Patient was admitted to the hospital and treated for Acute on chronic renal failure secondary to Rhabdyolysis. She had improvement of her renal function to near baseline. She did have episodes of shortness of breath which responded to her inhaler. She had a cough and developed back strain which was treated with pain medications. She remained fairly weak and required PT/OT for assistance. She was ultimately discahrged to the SNF for ongoing rehabilitation. Status at Discharge Cognitive/behavioral status at discharge: at baseline Functional status at discharge: uses cane/walker Overall status at discharge: patient is not back to baseline Time Spent with Patient Less than 30 minutes Exam Vital Signs (past 8 hours): - 01/18/18 11:45 Temperature 98.1 F Pulse Rate 55 L Respiratory Rate 18 Blood Pressure 140/73 H Pulse Oximetry 98 Oxygen Delivery Method Room Air Oxygen Flow Rate 0 Objective Labs Result Diagrams: 01/14/18 05:20 01/18/18 05:18 Labs: Laboratory Results - last 24 hr 01/18/18 05:18 Sodium 142 Potassium 3.3 L Chloride 109 H Carbon Dioxide 24 BUN 63 H Creatinine 3.20 H Estimated GFR 14.1 L BUN/Creatinine Ratio 19.7 Glucose 96 Calcium 7.9 L Discharge Plan Discharge Plan Patient Disposition: SNF Transfer to: [facility] Transportation: [facility] I certify the postop hospital intermediate care is medically necessary on a continuing basis for any conditions for which he/ she received care during this hospitalization.: Yes The receiving facility has agreed to accept transfer and provide medical treatment.: Yes Provider Discharge Instructions Diet: Low-sodium Liquid consistency: Normal/Thin Food texture: Regular Activity: as tolerated Skin/Wound/Dressing Care Skin care: wet to dry dressing changes Other wound treatment: as above Special Rehabilitation Services Reason for rehabilitation: Recovery r/t decondition Rehab type: Physical therapy and Occupational therapy Discharge Data Primary Care Provider: Renan Coombs Attending Provider: Peng Haas Admshahab Date/Time: 01/13/18 18:32 Discharges patient from system. Discharge Date/Time: 01/18/18 13:40
== END 2018-01-18 13:40 | DRG 565 ==
LOC: ED 18:01 → AC 18:33
PROVIDERS: Internal Medicine; Admitting Provider Internal Medicine; Emergency Provider Emergency Medicine; Family Provider Family Medicine; PCP Family Medicine; Visit Provider Internal Medicine
DX: T79.6XXA Traumatic ischemia of muscle, initial encounter (principal); Z68.43 Body mass index [BMI] 50.0-59.9, adult; N17.9 Acute kidney failure, unspecified; N39.0 Urinary tract infection, site not specified; M10.9 Gout, unspecified; E78.5 Hyperlipidemia, unspecified; J44.9 Chronic obstructive pulmonary disease, unspecified; E66.01 Morbid (severe) obesity due to excess calories; Z99.3 Dependence on wheelchair; W18.39XA Other fall on same level, initial encounter; Y92.003 Bedroom of unspecified non-institutional (private) residence as the place of occurrence of the external cause; N18.9 Chronic kidney disease, unspecified; E11.9 Type 2 diabetes mellitus without complications; Z90.5 Acquired absence of kidney
CPT/HCPCS: 36415; 71046; 76770; 80048; 80053; 80061; 81001; 82550; 82962; 83605; 83690; 83735; 83880; 84100; 84145; 84443; 84484; 84550; 85025; 85610; 87040; 87077; 87086; 87186; 93005; 93010; 94640; 94762; 96365; 96366; 96375; 97110; 97162; 97166; 97530; 97535; 99282; 99285; J1644; J1940; J1956

== ENCOUNTER → 2018-03-08 08:32 | Outpatient (CLI) | payer MEDICARE, OTHER, SELFPAY ==
[2018-01-13 20:03] VITALS: BMI 57.4
[2018-03-08 09:08] LABS: Add Manual Diff / Slide Review NO; Eosinophils Percent Auto 2.3 % (2-4); Hematocrit 37.1 % (36-46); Hemoglobin 12.6 g/dL (12.0-16.0); Lymphocytes Percent Auto 14.1 % (25-40); Mean Corpuscular HGB Conc 33.9 % (30-36); Mean Corpuscular Hemoglobin 30.5 PG (26-34); Monocytes Percent Auto 11.5 % (3-14); Neutrophils Absolute Auto 4400 /uL (3000-5900); Neutrophils Percent Auto 71.1 % (50-75); Platelet Count 288 X10^3/uL (150-400); Red Blood Cell Count 4.12 X10^6/uL (4.0-5.2); Red Cell Distribution Width 15.6 % (11.6-14.8); White Blood Cell Count 6.1 X10^3/uL (4.5-11.0)
[2018-03-08 09:52] LABS: Blood Urea Nitrogen 42 mg/dL (7-17); Calcium 6.6 mg/dL (8.4-10.2); Carbon Dioxide 33 mmol/L (22-32); Chloride 105 mmol/L (98-107); Estimated Glomerular Filt Rate 15.2 mL/min (>60); Glucose 74 mg/dL (80-110); HEMOLYSIS < 15 (0-50); Sodium 148 mmol/L (137-145)
[2018-03-08 10:01] LABS: Potassium 2.7 mmol/L (3.4-5.1)
[2018-03-08 10:02] LABS: Vitamin D 25 Hydroxy (D3) < 12.9 ng/mL (30.0-100.0)
[2018-03-10 16:37] LABS: Parathyroid Hormone Int 111 pg/mL (14-64)
== END ==
PROVIDERS: Visit Provider Physician Assistant
DX: N18.9 Chronic kidney disease, unspecified (principal); I50.9 Heart failure, unspecified
CPT/HCPCS: 36415; 80048; 82306; 83970; 84100; 85025

== ENCOUNTER → 2018-04-04 15:09 | Outpatient (REF) | payer MEDICARE, OTHER, SELFPAY ==
[2018-01-13 20:03] VITALS: BMI 57.4
[2018-04-04 18:22] LABS: Clostridium Difficile Tox PCR Positive for C. diff
== END ==
LOC: LAB 15:09
PROVIDERS: Family Provider Family Medicine; PCP Physician Assistant; Visit Provider Physician Assistant
DX: R19.7 Diarrhea, unspecified (principal)
CPT/HCPCS: 87493

== ENCOUNTER → 2018-09-24 14:50 | Outpatient (CLI) | payer MEDICARE, OTHER, SELFPAY ==
[2018-01-13 20:03] VITALS: BMI 57.4
[2018-09-24 15:02] LABS: Bacteria Urine None Seen; RBC Urine None Seen (0-5/HPF)
[2018-09-24 15:25] LABS: Add Manual Diff / Slide Review NO; Basophils Absolute Auto 100 /uL (0-100); Basophils Percent Auto 1.3 % (0-2); Eosinophils Absolute Auto 100 /uL (0-450); Eosinophils Percent Auto 1.6 % (2-4); Hematocrit 34.1 % (36-46); Hemoglobin 11.1 g/dL (12.0-16.0); Lymphocytes Absolute Auto 1300 /uL (1100-4500); Lymphocytes Percent Auto 22.2 % (25-40); Mean Corpuscular HGB Conc 32.6 % (30-36); Mean Corpuscular Hemoglobin 31.1 PG (26-34); Mean Corpuscular Volume 95.5 fL (80-100); Monocytes Absolute Auto 600 /uL (0-900); Monocytes Percent Auto 10.5 % (3-14); Neutrophils Absolute Auto 3700 /uL (1500-7000); Neutrophils Percent Auto 64.4 % (50-75); Platelet Count 282 X10^3/uL (150-400); Red Blood Cell Count 3.57 X10^6/uL (4.0-5.2); Red Cell Distribution Width 14.8 % (11.6-14.8); White Blood Cell Count 5.8 X10^3/uL (4.5-11.0)
[2018-09-24 15:44] LABS: Appearance Urine UA CLEAR; Bilirubin Urine UA NEGATIVE (NEGATIVE); Color Urine UA YELLOW; Glucose Urine UA NEGATIVE (Negative); Ketones Urine UA NEGATIVE (NEGATIVE); Leukocyte Esterase Urine UA NEGATIVE (NEGATIVE); Nitrite Urine UA NEGATIVE (Negative); Occult Blood Urine UA NEGATIVE (Negative); Protein Urine UA 2+ (Negative); Specific Gravity Urine UA 1.015 (1.000-1.035); Urobilinogen Urine UA 0.2 E.U./dL (0.2); pH Urine UA 7.5 (4.5-8.0)
[2018-09-24 16:05] LABS: Squamous Epithelial Cell Urine 0-1 /HPF (0-5/HPF); WBC Urine 1-5/HPF (0-5/HPF)
[2018-09-24 16:06] LABS: Culture Indicated Urine Cult Not Indicated
[2018-09-24 17:34] LABS: Alanine Aminotransferase 39 IU/L (9-52); Albumin 3.4 g/dL (3.5-5.0); Albumin Globulin Ratio 1.3 (1.0-2.8); Alkaline Phosphatase 95 U/L (38-126); Aspartate Aminotransferase 43 IU/L (14-36); BUN Creatinine Ratio 12.2 (6-22); Bilirubin Total 0.4 mg/dL (0.2-1.3); Blood Urea Nitrogen 39 mg/dL (7-17); Calcium 9.6 mg/dL (8.4-10.2); Carbon Dioxide 26 mmol/L (22-32); Chloride 103 mmol/L (98-107); Estimated Glomerular Filt Rate 14.1 mL/min (>60); Globulin 2.6 g/dL (1.7-4.1); Glucose 63 mg/dL (80-110); HEMOLYSIS < 15 (0-50); Sodium 138 mmol/L (137-145)
[2018-09-24 17:40] LABS: Potassium 5.4 mmol/L (3.4-5.1)
== END ==
PROVIDERS: PCP Physician Assistant; Visit Provider Family Medicine
DX: N18.4 Chronic kidney disease, stage 4 (severe) (principal)
CPT/HCPCS: 36415; 80053; 81001; 85025

== ENCOUNTER → 2018-11-19 14:49 | Outpatient (CLI) | payer MEDICARE, OTHER, SELFPAY ==
[2018-01-13 20:03] VITALS: BMI 57.4
[2018-11-19 15:09] LABS: Bacteria Urine None Seen; RBC Urine None Seen (0-5/HPF)
[2018-11-19 15:36] LABS: Appearance Urine UA CLEAR; Bilirubin Urine UA NEGATIVE (NEGATIVE); Color Urine UA YELLOW; Glucose Urine UA NEGATIVE (Negative); Ketones Urine UA NEGATIVE (NEGATIVE); Leukocyte Esterase Urine UA NEGATIVE (NEGATIVE); Nitrite Urine UA NEGATIVE (Negative); Occult Blood Urine UA NEGATIVE (Negative); Protein Urine UA 2+ (Negative); Urobilinogen Urine UA 0.2 E.U./dL (0.2); pH Urine UA 6.5 (4.5-8.0)
[2018-11-19 15:51] LABS: Squamous Epithelial Cell Urine 1-5 /HPF (0-5/HPF); WBC Urine 0-1/HPF (0-5/HPF)
[2018-11-19 15:52] LABS: Culture Indicated Urine Cult Not Indicated; Other Crystals Urine Other Crystals:
[2018-11-19 16:12] LABS: Alanine Aminotransferase 20 IU/L (9-52); Albumin 3.1 g/dL (3.5-5.0); Albumin Globulin Ratio 1.1 (1.0-2.8); Alkaline Phosphatase 101 U/L (38-126); Aspartate Aminotransferase 31 IU/L (14-36); Bilirubin Total 0.3 mg/dL (0.2-1.3); Blood Urea Nitrogen 62 mg/dL (7-17); Calcium 8.9 mg/dL (8.4-10.2); Carbon Dioxide 26 mmol/L (22-32); Chloride 106 mmol/L (98-107); Estimated Glomerular Filt Rate 14.6 mL/min (>60); Globulin 2.9 g/dL (1.7-4.1); Glucose 118 mg/dL (80-110); HEMOLYSIS < 15 (0-50); Magnesium 1.6 mg/dL (1.6-2.3); Potassium 5.1 mmol/L (3.4-5.1); Sodium 140 mmol/L (137-145); Uric Acid 6.8 mg/dL (2.5-6.2)
[2018-11-19 16:13] LABS: HEMOLYSIS < 15 (0-50); Iron 50 ug/dL (37-170)
[2018-11-19 16:24] LABS: Percent Iron Saturation 17 % (15-50); Total Iron Binding Capacity 290 ug/dL (265-497); Transferrin 214 mg/dL (206-381)
[2018-11-19 16:46] LABS: Ferritin 60.4 ng/mL (11.1-264)
[2018-11-19 19:49] LABS: Hemoglobin 9.2 g/dL (12.0-16.0); Red Blood Cell Count 2.86 X10^6/uL (4.0-5.2)
[2018-11-19 19:50] LABS: Mean Corpuscular HGB Conc 34.4 % (30-36); Mean Corpuscular Hemoglobin 32.2 PG (26-34); Mean Corpuscular Volume 94.2 fL (80-100); Platelet Count 264 X10^3/uL (150-400); Red Cell Distribution Width 13.3 % (11.6-14.8)
[2018-11-22 14:59] LABS: Parathyroid Hormone Int 114 pg/mL (14-64)
== END ==
PROVIDERS: PCP Physician Assistant; Visit Provider Physician Assistant Medical
DX: N18.4 Chronic kidney disease, stage 4 (severe) (principal); D63.1 Anemia in chronic kidney disease; N25.81 Secondary hyperparathyroidism of renal origin
CPT/HCPCS: 36415; 80053; 81001; 82728; 83540; 83550; 83735; 83970; 84100; 84550; 85027

== ENCOUNTER → 2019-01-02 13:23 | Outpatient (CLI) | payer MEDICARE, OTHER, SELFPAY ==
[2018-01-13 20:03] VITALS: BMI 57.4
--- NOTE | 2019-01-02 | DI.RAD.S_ITS ---
PROCEDURE: XR SHOULDER RT MIN 2V INDICATIONS: BILATERAL SHOULDER PAIN TECHNIQUE: 3 views of the shoulder were acquired. COMPARISON: [facility], CR, XR CHEST 2V, 01/13/2018, 15:49. None. FINDINGS: Bones: Severe degenerative changes are present at the acromioclavicular joint. Bony deformity is present at the right humeral head. These findings are markedly increased in severity when compared with the prior plain film of the chest dated 01/13/18. Soft tissues: No suspicious soft tissue calcifications. IMPRESSION: Severe degenerative changes and erosive changes at the acromioclavicular joint and humeral head. These findings are new when compared with the prior plain film from 01/13/18. Additionally, these findings are similar to the contralateral shoulder. These findings suggest erosive arthritis or avascular necrosis. MRI of the shoulder may be helpful to further characterize findings of clinically indicated. Septic arthritis could also be considered in the differential, but is considered less likely given the bilaterality of these findings. Dictated by: Gris Schrader M.D. on 01/02/2019 at 16:49 Approved by: Gris Schrader M.D. on 01/02/2019 at 16:50
--- NOTE | 2019-01-02 | DI.RAD.S_ITS ---
PROCEDURE: XR SHOULDER LT MIN 2V INDICATIONS: BILATERAL SHOULDER PAIN TECHNIQUE: 3 views of the shoulder were acquired. COMPARISON: [facility], CR, XR CHEST 2V, 01/13/2018, 15:49. FINDINGS: Bones: Severe degenerative changes are present at the acromioclavicular and glenohumeral joints. There is deformity of the humeral head which appears new when compared with the chest film dated 01/13/18. Soft tissues: No suspicious soft tissue calcifications. IMPRESSION: 1. Severe degenerative changes at the acromioclavicular joint and glenohumeral joint. These findings appear new/increased in extent when compared with the prior plain film dated 01/13/18. Findings are suspicious for avascular necrosis of the humeral head. Alternatively, erosive arthritis or septic arthritis could be considered in the differential diagnosis. If further characterization is marked it, MRI of the shoulder may be helpful. Dictated by: Gris Schrader M.D. on 01/02/2019 at 16:47 Approved by: Gris Schrader M.D. on 01/02/2019 at 16:48
== END ==
PROVIDERS: PCP Family Medicine; Visit Provider Family Medicine
DX: M25.512 Pain in left shoulder (principal); M25.511 Pain in right shoulder; M19.012 Primary osteoarthritis, left shoulder
CPT/HCPCS: 73030

== ENCOUNTER → 2019-01-24 10:28 | Outpatient (CLI) | payer MEDICARE, OTHER, SELFPAY ==
[2018-01-13 20:03] VITALS: BMI 57.4
[2019-01-24 11:02] LABS: Add Manual Diff / Slide Review NO; Basophils Absolute Auto 100 /uL (0-100); Basophils Percent Auto 1.1 % (0-2); Eosinophils Absolute Auto 100 /uL (0-450); Eosinophils Percent Auto 2.1 % (2-4); Hematocrit 28.7 % (36-46); Hemoglobin 9.7 g/dL (12.0-16.0); Lymphocytes Absolute Auto 1000 /uL (1100-4500); Lymphocytes Percent Auto 17.6 % (25-40); Mean Corpuscular HGB Conc 33.8 % (30-36); Mean Corpuscular Hemoglobin 31.7 PG (26-34); Mean Corpuscular Volume 93.6 fL (80-100); Monocytes Absolute Auto 500 /uL (0-900); Monocytes Percent Auto 9.8 % (3-14); Neutrophils Absolute Auto 3800 /uL (1500-7000); Neutrophils Percent Auto 69.4 % (50-75); Platelet Count 266 X10^3/uL (150-400); Red Blood Cell Count 3.06 X10^6/uL (4.0-5.2); Red Cell Distribution Width 13.7 % (11.6-14.8); White Blood Cell Count 5.5 X10^3/uL (4.5-11.0)
[2019-01-24 11:23] LABS: Alanine Aminotransferase 21 IU/L (9-52); Albumin 2.7 g/dL (3.5-5.0); Alkaline Phosphatase 94 U/L (38-126); Aspartate Aminotransferase 32 IU/L (14-36); BUN Creatinine Ratio 14.8 (6-22); Bilirubin Total 0.6 mg/dL (0.2-1.3); Blood Urea Nitrogen 59 mg/dL (7-17); Calcium 8.5 mg/dL (8.4-10.2); Carbon Dioxide 25 mmol/L (22-32); Chloride 108 mmol/L (98-107); Estimated Glomerular Filt Rate 10.9 mL/min (>60); Globulin 2.7 g/dL (1.7-4.1); Glucose 112 mg/dL (80-110); HEMOLYSIS 15 (0-50); Phosphorous 5.8 mg/dL (2.8-4.1); Potassium 4.9 mmol/L (3.4-5.1); Sodium 140 mmol/L (137-145); Total Protein 5.4 g/dL (6.3-8.2); Uric Acid 6.3 mg/dL (2.5-6.2)
[2019-01-24 11:31] LABS: Creatinine Urine Random 50.8 mg/dL
[2019-01-24 12:24] LABS: Microalbumi Creatinin Ratio Ur 3740.1 ug/mg CR (<30); Protein (Total) Urine Random 963 mg/dL (0-12); Protein Creatinine Ratio Urine 18.95 GRAM/24H
== END ==
PROVIDERS: PCP Family Medicine; Visit Provider Internal Medicine Nephrology
DX: N18.4 Chronic kidney disease, stage 4 (severe) (principal); N25.81 Secondary hyperparathyroidism of renal origin; I10 Essential (primary) hypertension; D63.1 Anemia in chronic kidney disease; R80.9 Proteinuria, unspecified
CPT/HCPCS: 36415; 80053; 82043; 82570; 84100; 84156; 84550; 85025

== ENCOUNTER 2019-02-14 12:45 | Emergency (ER) | payer MEDICARE, OTHER, SELFPAY ==
[2018-01-13 20:03] VITALS: BMI 57.4
[2019-02-14 12:50] VITALS: BP 191/43; PULSE 63; RESP 20; TEMP 36.9; O2SAT 100; BMI 38.7
--- NOTE | 2019-02-14 12:56 | ED_ITS ---
HPI - Fall General Chief Complaint: Fall Stated Complaint: GLF, L LE injury Time Seen by Provider: 02/14/19 12:54 Source: patient and EMS Mode of arrival: EMS Limitations: no limitations History of Present Illness HPI Narrative: This is a 78-year-old female who comes to the emergency department with complaint of fall. Patient states that she has got off the toilet, she tripped and believe she hit her leg. She developed a hematoma quite quickly on the martinez. She states it does not seem to be increasing in size. She states she has some pain in the leg but she has been able to ambulate on it. She denies hitting her head, she denies any neck pain back pain or other injuries. She does take an aspirin daily. She denies any other blood thinners. Patient does take medication for blood pressure, dyslipidemia gout and Serevent for her lungs. Related Data Home Medications Medication Instructions Recorded Confirmed Fish Oil (Fish Oil 500 MG Softgel) 500 mg PO DAILY #0 10/04/11 01/13/18 albuterol sulfate [Proventil HFA] 1 puff INH PRN #0 10/27/11 01/13/18 furosemide 40 mg PO DAILY #0 10/27/11 02/14/19 aspirin 81 mg PO DAILY 02/14/19 02/14/19 atorvastatin 20 mg PO DAILY 02/14/19 02/14/19 bupropion HCl 100 mg PO BID 02/14/19 02/14/19 colchicine 0.6 mg PO DAILY 02/14/19 02/14/19 hydralazine 100 mg PO Q8H 02/14/19 02/14/19 lisinopril 20 mg PO DAILY 02/14/19 02/14/19 multivitamin 1 tab PO DAILY 02/14/19 02/14/19 potassium chloride 20 meq PO DAILY 02/14/19 02/14/19 Previous Rx's Medication Instructions Recorded allopurinol 100 mg PO DAILY #30 tab 01/18/18 carvedilol [Coreg] 6.25 mg PO BID #60 tab 01/18/18 nystatin [Nystop] 1 applic TOPICAL BID #30 g 01/18/18 Allergies Allergy/AdvReac Type Severity Reaction Status Date / Time Penicillins [PENICILLINS] Allergy Mild Verified 01/14/18 12:33 Sulfa (Sulfonamide Allergy Mild Verified 01/14/18 12:33 Antibiotics) [SULFA (SULFONAMIDE ANTIBIOTICS)] Review of Systems Review of Systems ROS Unobtainable: All systems reviewed & are unremarkable except as noted in HPI and below Constitutional Constitutional: Denies weakness and Denies other (Head injury) ENT Ears, Nose, Mouth, and Throat: Denies neck pain Cardiovascular Cardiovascular: Denies chest pain and Denies dyspnea Respiratory Respiratory: Denies dyspnea Musculoskeletal Musculoskeletal: Reports as per HPI, Denies back pain, Denies arthralgias, Denies joint swelling, Denies limited range of motion, Denies muscle weakness, Denies neck pain, Denies numbness and Denies tingling Integumentary/Breasts Skin/Breast: Denies rash and Reports unusual bruising (Large hematoma) Neurologic Neurologic: Denies focal weakness, Denies numbness, Denies sensory deficit, Denies tingling and Denies weakness Exam Narrative Exam Narrative: GENERAL: Alert and oriented x three, obese, well-appearing female in no acute distress. HEENT: Head normocephalic, atraumatic, EOMI, pupils reactive, face symmetric, moist mucous membranes NECK: Supple, full range of motion CARDIOVASCULAR: Regular rate and rhythm without murmurs, rubs or gallops. RESPIRATORY: Breath sounds equal bilaterally, no wheezes rales or rhonchi. ABDOMEN: Soft, nontender. Normoactive bowel sounds all 4 quadrants. No gu arding or rebound, rigidity, no mass : No CVA tenderness EXTREMITIES: Normal range of motion, no clubbing or edema. Patient's left lower extremity shows a large hematoma that is about 6 cm in size it is soft but not fluctuant. There is ecchymoses at the site. Does not appear to be spreading in the department. She has 2+ dorsalis pedis bilaterally. Patient has no bony tenderness on palpation. She does have normal range of motion. Neurovascularly intact NEUROLOGICAL: Cranial nerves II through XII grossly intact. Moving all extremities SKIN: Warm, dry, no petechiae, no rashes or lesions. Initial Vital Signs Initial Vital Signs: Vital Signs Temperature 98.5 F 02/14/19 12:50 Pulse Rate 63 02/14/19 12:50 Respiratory Rate 20 02/14/19 12:50 Blood Pressure 191/43 H 02/14/19 12:50 Pulse Oximetry 100 02/14/19 12:50 PFSH Medical History COPD (chronic obstructive pulmonary disease) (Acute) Diabetes mellitus type 2 in obese (Acute) Gout (Acute) Hypercholesterolemia (Acute) Morbid obesity (Acute) Tuberculosis (Acute) Surgical History History of nephrectomy (Acute) S/P tonsillectomy and adenoidectomy (Acute) Status post surgery (04/29/08) Status post surgery (10/27/11) Family History Father No problems noted. Mother No problems noted. Brother No problems noted. Brother No problems noted. Social History household members: none Smoking Status: Never smoker alcohol intake: former Family History Father No problems noted. Mother No problems noted. Brother No problems noted. Brother No problems noted. Social History household members: none Smoking Status: Never smoker alcohol intake: former Course Orders Ordered: ED Orders 02/14/19 12:54 US extremity nonvasc lower lt Stat XR tibia fibula LT 2V Stat Discontinued Medications Acetaminophen (Tylenol) 975 mg PO NOW ONE Stop: 02/14/19 12:55 Last Admin: 02/14/19 13:10 Dose: 975 mg Documented by: BTONER Vital Signs Vital signs: Vital Signs - 8 hr 02/14/19 12:50 02/14/19 15:11 02/14/19 16:06 Temperature 98.5 F Pulse Rate 63 61 62 Respiratory Rate 20 19 18 Blood Pressure 191/43 H 167/45 H Blood Pressure [Left Arm] 173/45 H Pulse Oximetry 100 100 100 MDM - Fall Imaging Data tib/fib xray: Radiologist's impression: [address] [address] XRay Report Signed Patient: Sondra Tripp JMR#: [id number] : 3Acct:[id number] Age/Sex: 78 / FDate of Service: 02/14/19 Loc: ED Accession Number: [id number] Procedure: XR tibia fibula LT 2V Ordering Provider: Nelly Enriquez D.O. PROCEDURE: XR TIBIA FIBULA RT 2V INDICATIONS: fall, leg pain, hematoma TECHNIQUE: 2 views of the tibia and fibula were acquired. COMPARISON: [facility], , TIB/FIB 2V LEFT, 04/02/2010, 16:35. FINDINGS: Bones: No displaced fractures or dislocations of the left lower leg are evident. Upper, please note that the lateral malleolus and lateral margin of the talus is not adequately visualized related to overlying letters and numbers on the image. The bone mineralization is decreased. Severe degenerative changes of the knee are present. Soft tissues: No suspicious soft tissue calcifications or masses. IMPRESSION: 1. No displaced fractures of the left lower leg. 2. The lateral malleolus is partially obscured by overlying numbers on the film. If there is clinical concern for a lateral malleolus fracture, please consider dedicated ankle imaging. Dictated by: Bao Mccabe M.D. on 02/14/2019 at 12:27 Approved by: Bao Mccabe M.D. on 02/14/2019 at 12:29 lower extremity US: Radiologist's impression: [place] [address] Ultrasound Report Signed Patient: Sondra Tripp JMR#: [id number] : 3Acct:[id number] Age/Sex: 78 / FDate of Service: 02/14/19 Loc: ED Accession Number: [id number] Procedure: US extremity nonvasc lower lt Ordering Provider: Nelly Enriquez D.O. PROCEDURE: US EXTREMITY NONVASC LOWER LT INDICATIONS: HEMATOMA, EVALUATE FOR ACTIVE BLEEDING LEFT LEG TECHNIQUE: Real-time scanning was performed of the left lower leg, with image documentation. COMPARISON: [facility], , XR TIBIA FIBULA LT 2V, 02/14/2019, 12:56. FINDINGS: Targeted sonographic imaging of the left lower leg was performed at the site of the patient's site of swelling. There is a heterogeneous hypoechoic subcutaneous abnormality and that measures 6.3 x 2.3 x 6.4 cm, which does not demonstrate internal vascularity. No clear evidence of active extravasation is appreciated. No definite soft tissue masses appreciated. No definite involvement of the underlying muscle is appreciated. IMPRESSION: Moderate sized subcutaneous hematoma along the left lower leg probably represents a hematoma. If there is high clinical concern for active extravasation, please consider contrast enhanced CT imaging for further evaluation. Dictated by: Bao Mccabe M.D. on 02/14/2019 at 13:33 Approved by: Bao Mccabe M.D. on 02/14/2019 at 13:48 [facility] Narrative Medical decision making narrative: Patient has a hematoma lower extremity no obvious sign of increasing size or extravasation for active bleeding. X-rays negative. Patient has been ambulating earlier today. Her blood pressures improved after she took her home medications. Discharge Plan Departure Patient Disposition: Home Clinical Impression: Hematoma of left lower extremity Qualifiers: Encounter type: initial encounter Qualified Code(s): S80.12XA - Contusion of left lower leg, initial encounter Discharge Date/Time: 02/14/19 16:18 Instructions: DI for Hematoma (Bruise) Activity Restrictions/Additional Instructions: Follow-up with primary care in the next 5-7 days for recheck. Your hematoma will take several weeks to resolve. You may continue home medications as prescribed. Continue to use an Mike wrap for compression bandage during the day to the affected area. Return to the emergency department fevers greater than 100.4 F, rapidly worsening swelling in your lower extremity, redness, increasing pain, loss of sensation, new numbness or weakness or other new or concerning symptoms. Prescriptions: No Action Fish Oil (Fish Oil 500 MG Softgel) 500 mg PO DAILY Qty: 0 RF: 0 albuterol sulfate [Proventil HFA] 90 MCG/PUFF HFA aerosol inhaler 1 puff INH PRN Qty: 0 RF: 0 furosemide 40 MG tablet 40 mg PO DAILY Qty: 0 RF: 0 carvedilol [Coreg] 6.25 mg Tablet 6.25 mg PO BID Qty: 60 RF: 0 allopurinol 100 mg Tablet 100 mg PO DAILY Qty: 30 RF: 0 nystatin [Nystop] 100,000 unit/gram Powder 1 applic Topical BID Qty: 30 RF: 0 multivitamin Tablet 1 tab PO DAILY RF: 0 atorvastatin 20 mg tablet 20 mg PO DAILY RF: 0 lisinopril 20 mg tablet 20 mg PO DAILY RF: 0 aspirin 81 mg tablet,delayed release (DR/EC) 81 mg PO DAILY RF: 0 bupropion HCl 100 mg tablet sustained-release 12 hr 100 mg PO BID RF: 0 potassium chloride 20 mEq tablet,ER particles/crystals 20 meq PO DAILY RF: 0 hydralazine 50 mg tablet 100 mg PO Q8H RF: 0 colchicine 0.6 mg tablet 0.6 mg PO DAILY RF: 0 Referrals: Shamar Pettit MD [Primary Care Provider] -
[2019-02-14] MEDS: ACETAMINOPHEN 325 MG TABLET 975 MG PO (13:10)
[2019-02-14 15:11] VITALS: BP 173/45; PULSE 61; RESP 19; O2SAT 100
[2019-02-14 16:06] VITALS: BP 167/45; PULSE 62; RESP 18; O2SAT 100
== END 2019-02-14 16:18 | disposition home or self-care (01) ==
PROVIDERS: Emergency Provider Emergency Medicine; PCP Family Medicine
DX: S80.12XA Contusion of left lower leg, initial encounter (principal); W01.0XXA Fall on same level from slipping, tripping and stumbling without subsequent striking against object, initial encounter
CPT/HCPCS: 73590; 76882; 99283; 99284

== ENCOUNTER → 2019-02-21 15:37 | Outpatient (CLI) | payer MEDICARE, OTHER, SELFPAY ==
[2018-01-13 20:03] VITALS: BMI 57.4
[2019-02-21 16:58] LABS: Add Manual Diff / Slide Review NO; Basophils Absolute Auto 0 /uL (0-100); Basophils Percent Auto 0.8 % (0-2); Eosinophils Absolute Auto 100 /uL (0-450); Eosinophils Percent Auto 1.3 % (2-4); Hematocrit 29.4 % (36-46); Hemoglobin 9.7 g/dL (12.0-16.0); Lymphocytes Absolute Auto 1000 /uL (1100-4500); Lymphocytes Percent Auto 19.1 % (25-40); Mean Corpuscular HGB Conc 32.9 % (30-36); Mean Corpuscular Volume 94.3 fL (80-100); Monocytes Absolute Auto 400 /uL (0-900); Monocytes Percent Auto 8.3 % (3-14); Neutrophils Absolute Auto 3600 /uL (1500-7000); Neutrophils Percent Auto 70.5 % (50-75); Platelet Count 278 X10^3/uL (150-400); Red Blood Cell Count 3.12 X10^6/uL (4.0-5.2); White Blood Cell Count 5.1 X10^3/uL (4.5-11.0)
[2019-02-21 17:38] LABS: Alanine Aminotransferase 16 IU/L (9-52); Albumin 3.3 g/dL (3.5-5.0); Albumin Globulin Ratio 1.1 (1.0-2.8); Alkaline Phosphatase 107 U/L (38-126); Aspartate Aminotransferase 34 IU/L (14-36); BUN Creatinine Ratio 15.4 (6-22); Bilirubin Total 0.5 mg/dL (0.2-1.3); Blood Urea Nitrogen 63 mg/dL (7-17); Calcium 9.2 mg/dL (8.4-10.2); Carbon Dioxide 21 mmol/L (22-32); Chloride 109 mmol/L (98-107); Estimated Glomerular Filt Rate 10.6 mL/min (>60); Globulin 2.9 g/dL (1.7-4.1); Glucose 71 mg/dL (80-110); HEMOLYSIS < 15 (0-50); Phosphorous 6.7 mg/dL (2.8-4.1); Sodium 140 mmol/L (137-145); Total Protein 6.2 g/dL (6.3-8.2)
[2019-02-21 17:39] LABS: Creatinine Urine Random 50.4 mg/dL
[2019-02-21 17:43] LABS: Potassium 5.6 mmol/L (3.4-5.1)
[2019-02-21 17:53] LABS: Microalbumi Creatinin Ratio Ur 16448.4 ug/mg CR (<30); Protein (Total) Urine Random 829 mg/dL (0-12); Protein Creatinine Ratio Urine 16.44 GRAM/24H
== END ==
PROVIDERS: PCP Family Medicine; Visit Provider Internal Medicine Nephrology
DX: N18.4 Chronic kidney disease, stage 4 (severe) (principal); I10 Essential (primary) hypertension; N25.81 Secondary hyperparathyroidism of renal origin; D63.1 Anemia in chronic kidney disease; R80.9 Proteinuria, unspecified
CPT/HCPCS: 36415; 80053; 82043; 82570; 84100; 84156; 84550; 85025

== ENCOUNTER → 2019-03-13 15:51 | Outpatient (CLI) | payer MEDICARE, OTHER, SELFPAY ==
[2018-01-13 20:03] VITALS: BMI 57.4
[2019-03-06 13:17] VITALS: BMI 57.4
--- NOTE | 2019-03-13 | DI.ECHO.S_ITS ---
[place] [facility]---------+ [facility] +---------+ : : [address] : : : : [id number] : : : : Phone: [phone]+ Echocardiogram Report + + :Name: DOMINIC TARANGO Study Date: 03/13/2019 Height: 59 in : :[facility] Exam Location: IS Weight: 197 lb : : Gender: Female BSA: 1.8 m2 : :: 1940 Age: 78 yrs BP: 147/60 mmHg: :Reason For Study: Dizziness : : Performed By: Stella Page : :Referring: UNSPECIFIED : + + Interpretation Summary Normal sinus rhythm. Normal LV size; mild-moderate concentric LVH; normal wall motion and LV systolic function. EF is 60-65%. Severe biatrial enlargement. Aortic valve leaflets are mildly thickened and calcified; there is moderate aortic stenosis. Peak velocity is 3 m/sec; mean gradient is 18 mm Hg. Otherwise no significant valvular abnormalities. Compared to prior study 05/30/2018, aortic stenosis has gotten worse. Procedure: A two-dimensional transthoracic echocardiogram with color flow and Doppler was performed. The study quality was technically adequate. Comparison is made with the echocardiogram of 05/30/2018. The patient was in normal sinus rhythm during the exam. Left Ventricle: Left ventricular wall thickness is mild-moderately increased. The left ventricle is normal in size. The ejection fraction is estimated to be 60-65%. There are no focal wall motion abnormalities. Diastolic parameters suggest a relaxation abnormality of the left ventricle, consistent with probable normal filling pressures. Right Ventricle: The right ventricle is mildly dilated. The right ventricular systolic function is normal. Atria: Both atria are severely dilated. There is no Doppler evidence for an interatrial shunt. Mitral Valve: The mitral valve leaflets appear mildly thickened, but open well. There is mild mitral annular calcification. There is trace mitral regurgitation. Aortic Valve: The aortic valve is trileaflet. The aortic valve is mildly calcified. The peak aortic velocity is 3.0 m/sec. The peak aortic velocity on the previous exam was 2.6 m/sec. The calculated aortic valve area is 1.3 cm2. The aortic valve mean gradient is 17.6 mmHg. There is trace aortic regurgitation. Compared to the prior echo study, the aortic insufficiency is a new finding. Tricuspid Valve: The tricuspid valve is normal in structure and function. There is trace tricuspid regurgitation. The right ventricular systolic pressure is estimated to be at least 43 mmHg based on an estimated right atrial pressure of 3 mm Hg. Pulmonic Valve: The pulmonic valve is not well visualized. There is trace pulmonic regurgitation. Great Vessels: The aortic root is normal size. The ascending aorta is normal in size. The pulmonary is not well visualized. The IVC is of normal diameter and collapses greater than 50% with a sniff. This suggests a low right atrial pressure of 3 mm Hg. Pericardium/ Pleura There is no pericardial effusion. Can not rule out left sided pleural effusion. MMode/2D Measurements & Calculations LVIDd: 4.3 cm LVOT diam: 1.8 cm LVIDs: 3.0 cm Ao root diam: 3.3 cm FS: 29.5 % asc Aorta Diam: 3.2 cm EPSS: 0.17 cm IVSd: 1.1 cm LVPWd: 1.0 cm LV starr. diameter/BSA (cm/m^2): 2.3 LV sys. diameter/BSA (cm/m^2): 1.6 LA A2 area: 33.6 cm2 RA long axis: 6.2 cm LA A4 area: 29.5 cm2 RA area: 25.9 cm2 LA length (vol): 6.8 cm RA vol: 91.9 ml LA vol: 123.7 ml RA : 50.2 ml/m2 LA vol index: 67.5 ml/m2 IVC diam: 1.4 cm RVD1 (basal): 5.0 cm RVD2 (mid): 4.3 cm TAPSE: 2.2 cm Doppler Measurements & Calculations Ao V2 max: 304.4 cm/sec LVOT Max Bismark: 111.5 cm/sec Ao V2 mean: 197.3 cm/sec LV V1 max P.0 mmHg Ao max P.1 mmHg LV V1 VTI: 33.4 cm Ao mean P.6 mmHg SHANNA(I,D): 1.3 cm2 Ao V2 VTI: 70.0 cm SHANNA(V,D): 0.97 cm2 sev ratio: 0.48 SHANNA indexed to BSA (cm^2/m^2): 0.69 MV E max bismark: 85.3 cm/sec TR max bismark: 315.9 cm/sec MV A max bismark: 125.1 cm/sec TR max P.9 mmHg MV E/A: 0.68 PA V2 max: 164.2 cm/sec Med Peak E' Bismark: 5.0 cm/sec PA V2 mean: 92.8 cm/sec E/E' med: 17.2 PA mean P.2 mmHg Lat Peak E' Bismark: 8.5 cm/sec PA Accel Time: 0.07 sec E/E' lat: 10.1 E/e' average: 13.6 MV P1/2t: 94.8 msec MV P1/2t max bismark: 86.2 cm/sec SV(LVOT): 88.3 ml MVA(P1/2t): 2.3 cm2 Electronically signed by: Jenny Cam M.D. on Reading Physician:03/13/2019 11:06 PM
== END ==
PROVIDERS: PCP Family Medicine; Visit Provider Family Medicine
DX: I35.0 Nonrheumatic aortic (valve) stenosis (principal); R42 Dizziness and giddiness
CPT/HCPCS: 93306

== ENCOUNTER → 2019-03-20 13:16 | Outpatient (CLI) | payer MEDICARE, OTHER, SELFPAY ==
[2019-03-06 13:17] VITALS: BMI 57.4
== END ==
PROVIDERS: PCP Family Medicine; Visit Provider Family Medicine
DX: I87.2 Venous insufficiency (chronic) (peripheral) (principal); L97.822 Non-pressure chronic ulcer of other part of left lower leg with fat layer exposed; E11.622 Type 2 diabetes mellitus with other skin ulcer; E66.01 Morbid (severe) obesity due to excess calories; J44.9 Chronic obstructive pulmonary disease, unspecified
CPT/HCPCS: 11042; 11045; 99203; 99213

== ENCOUNTER → 2019-03-27 13:33 | Outpatient (CLI) | payer MEDICARE, OTHER, SELFPAY ==
[2019-03-06 13:17] VITALS: BMI 57.4
== END ==
PROVIDERS: PCP Family Medicine; Visit Provider Family Medicine
DX: I87.2 Venous insufficiency (chronic) (peripheral) (principal); E11.622 Type 2 diabetes mellitus with other skin ulcer; S80.12XA Contusion of left lower leg, initial encounter; E66.01 Morbid (severe) obesity due to excess calories
CPT/HCPCS: 11042; 11045; 97605

== ENCOUNTER → 2019-03-29 12:38 | Outpatient (CLI) | payer MEDICARE, OTHER, SELFPAY ==
[2019-03-06 13:17] VITALS: BMI 57.4
== END ==
PROVIDERS: PCP Family Medicine; Visit Provider Family Medicine
DX: S81.802A Unspecified open wound, left lower leg, initial encounter (principal)
CPT/HCPCS: 97605

== ENCOUNTER → 2019-04-03 14:25 | Outpatient (CLI) | payer MEDICARE, OTHER, SELFPAY ==
[2019-03-06 13:17] VITALS: BMI 57.4
== END ==
PROVIDERS: PCP Family Medicine; Visit Provider Family Medicine
DX: I87.2 Venous insufficiency (chronic) (peripheral) (principal); E11.622 Type 2 diabetes mellitus with other skin ulcer; L97.822 Non-pressure chronic ulcer of other part of left lower leg with fat layer exposed; E66.01 Morbid (severe) obesity due to excess calories
CPT/HCPCS: 11042; 11045

== ENCOUNTER → 2019-04-05 14:24 | Outpatient (CLI) | payer MEDICARE, OTHER, SELFPAY ==
[2019-03-06 13:17] VITALS: BMI 57.4
== END ==
PROVIDERS: PCP Family Medicine; Visit Provider Family Medicine
DX: S81.802D Unspecified open wound, left lower leg, subsequent encounter (principal)
CPT/HCPCS: 99213

== ENCOUNTER → 2019-04-08 10:50 | Outpatient (CLI) | payer MEDICARE, OTHER, SELFPAY ==
[2019-03-06 13:17] VITALS: BMI 57.4
== END ==
PROVIDERS: PCP Family Medicine; Visit Provider Podiatrist Primary Podiatric Medicine
DX: S81.802D Unspecified open wound, left lower leg, subsequent encounter (principal)
CPT/HCPCS: 99213

== ENCOUNTER → 2019-04-10 08:34 | Outpatient (CLI) | payer MEDICARE, OTHER, SELFPAY ==
[2019-03-06 13:17] VITALS: BMI 57.4
== END ==
PROVIDERS: PCP Family Medicine; Visit Provider Family Medicine
DX: I87.2 Venous insufficiency (chronic) (peripheral) (principal); E11.622 Type 2 diabetes mellitus with other skin ulcer; L97.829 Non-pressure chronic ulcer of other part of left lower leg with unspecified severity; R60.0 Localized edema; I73.9 Peripheral vascular disease, unspecified; E66.01 Morbid (severe) obesity due to excess calories
CPT/HCPCS: 97597; 97598

== ENCOUNTER → 2019-04-17 13:02 | Outpatient (CLI) | payer MEDICARE, OTHER, SELFPAY ==
[2019-03-06 13:17] VITALS: BMI 57.4
== END ==
PROVIDERS: PCP Family Medicine; Visit Provider Family Medicine
DX: I87.2 Venous insufficiency (chronic) (peripheral) (principal); E11.622 Type 2 diabetes mellitus with other skin ulcer; E66.01 Morbid (severe) obesity due to excess calories; I73.9 Peripheral vascular disease, unspecified; L97.828 Non-pressure chronic ulcer of other part of left lower leg with other specified severity
CPT/HCPCS: 11042; 11045

== ENCOUNTER → 2019-05-01 08:53 | Outpatient (CLI) | payer MEDICARE, OTHER, SELFPAY ==
[2019-03-06 13:17] VITALS: BMI 57.4
== END ==
PROVIDERS: PCP Family Medicine; Visit Provider Family Medicine
DX: I87.2 Venous insufficiency (chronic) (peripheral) (principal); L97.829 Non-pressure chronic ulcer of other part of left lower leg with unspecified severity; E11.622 Type 2 diabetes mellitus with other skin ulcer; I73.9 Peripheral vascular disease, unspecified; R60.0 Localized edema; E66.01 Morbid (severe) obesity due to excess calories
CPT/HCPCS: 15271; 15272; Q4110

== ENCOUNTER → 2019-05-15 10:01 | Outpatient (CLI) | payer MEDICARE, OTHER, SELFPAY ==
[2019-03-06 13:17] VITALS: BMI 57.4
== END ==
PROVIDERS: PCP Family Medicine; Visit Provider Family Medicine
DX: I87.2 Venous insufficiency (chronic) (peripheral) (principal); L97.821 Non-pressure chronic ulcer of other part of left lower leg limited to breakdown of skin; E11.622 Type 2 diabetes mellitus with other skin ulcer; I73.9 Peripheral vascular disease, unspecified; R60.1 Generalized edema; E66.01 Morbid (severe) obesity due to excess calories
CPT/HCPCS: 11042; 11045

== ENCOUNTER → 2019-05-22 10:17 | Outpatient (CLI) | payer MEDICARE, OTHER, SELFPAY ==
[2019-03-06 13:17] VITALS: BMI 57.4
== END ==
PROVIDERS: PCP Family Medicine; Visit Provider Family Medicine
DX: I87.2 Venous insufficiency (chronic) (peripheral) (principal); E11.622 Type 2 diabetes mellitus with other skin ulcer; L97.821 Non-pressure chronic ulcer of other part of left lower leg limited to breakdown of skin; I73.9 Peripheral vascular disease, unspecified; R60.0 Localized edema; E66.01 Morbid (severe) obesity due to excess calories
CPT/HCPCS: 11042; 11045; 87070; 87075; 87077; 87186; 87205

== ENCOUNTER → 2019-05-29 09:26 | Outpatient (CLI) | payer MEDICARE, OTHER, SELFPAY ==
[2019-03-06 13:17] VITALS: BMI 57.4
== END ==
PROVIDERS: PCP Family Medicine; Visit Provider Family Medicine
DX: I87.2 Venous insufficiency (chronic) (peripheral) (principal); L97.822 Non-pressure chronic ulcer of other part of left lower leg with fat layer exposed; E11.622 Type 2 diabetes mellitus with other skin ulcer; E66.01 Morbid (severe) obesity due to excess calories; I73.9 Peripheral vascular disease, unspecified; B96.4 Proteus (mirabilis) (morganii) as the cause of diseases classified elsewhere
CPT/HCPCS: 11042

== ENCOUNTER 2019-11-15 23:41 | Emergency (ER) | payer MEDICARE, OTHER, SELFPAY ==
[2019-03-06 13:17] VITALS: BMI 57.4
[2019-11-15 23:46] VITALS: BP 122/73; PULSE 71; RESP 16; TEMP 36.6; O2SAT 97; BMI 26.5
--- NOTE | 2019-11-15 23:56 | DI.US.S_ITS ---
PROCEDURE: US ABDOMEN COMPLETE INDICATIONS: SEVERE EPIGASTRIC PAIN AFTER EATING. TECHNIQUE: Real-time scanning was performed of the abdominal and retroperitoneal organs, with image documentation. COMPARISON: [facility], CT, CT KUB, 11/15/2019, 18:59. [facility], US, US ABDOMEN LIMITED, 11/15/2019, 8:33. [facility], CT, CT ABDOMEN PELVIS WITHOUT CONTRAST, 09/17/2019, 0:16. [facility], US, US ABDOMEN LIMITED, 08/21/2019, 1:51. [facility], US, US ABDOMEN COMPLETE, 07/30/2019, 15:08. [facility], CT, CT KUB, 07/30/2019, 13:14. FINDINGS: Liver: Liver is normal in size and demonstrates mildly increased echogenicity when compared to the right kidney. No definite liver lesions are appreciated in Gallbladder: The gallbladder is mildly dilated without significant wall thickening or pericholecystic fluid. The patient did exhibit a positive sonographic Arizmendi sign. There is a large gallstone contained within the gallbladder measuring up to 4 point centimeters in largest dimension. A small amount sludge is seen within the gallbladder. Biliary ducts: No intrahepatic biliary dilatation is identified. The common bile duct was not adequately seen and was obscured by overlying bowel gas. Pancreas: The pancreas was obscured by overlying bowel gas. Spleen: The spleen was not definitely identified related to overlying bowel gas. There appears to be a left-sided pleural effusion. Kidneys: The left kidney is absent. The right kidney is small in size and demonstrates increased echogenicity of the renal cortex. The right kidney measures up to approximately 9.3 cm in length. There is no hydronephrosis or shadowing nephrolithiasis. No definite cyst or so of renal lesion is evident. Aorta: Visualized aorta is normal in caliber at less than 3 cm. Iliacs: Obscured by bowel gas. IVC: Intrahepatic inferior vena cava is patent. Miscellaneous: No free abdominal fluid. IMPRESSION: 1. Cholelithiasis with a positive sonographic Arizmendi sign. Please correlate clinically to exclude acute cholecystitis. 2. Probable hepatic steatosis. 3. Echogenic right kidney suggestive of chronic medical renal disease. The left kidney is absent. 4. Apparent left-sided pleural effusion. Note: The preliminary report provided by [facility] is concordant with the final report. Dictated by: Bao Mccabe M.D. on 11/16/2019 at 8:20 Approved by: Bao cMcabe M.D. on 11/16/2019 at 8:24
--- NOTE | 2019-11-16 00:06 | ED.ABDPAIN ---
HPI - Abdominal Pain General Chief Complaint: Abdominal Pain Stated Complaint: Abdominal pain Time Seen by Provider: 11/15/19 23:44 Source: patient and EMS Mode of arrival: EMS Limitations: no limitations History of Present Illness HPI narrative: 78F former smoker with extensive medical history including ESRD (MWF), COPD, DM, cardiomyopathy, kidney stones, NSTEMI presents with EMS and a chief complaint severe epigastric and right upper quadrant pain for the past week. She states that she has been dealing with known gallbladder disease for many months and prior to the pandemic she had been referred to a surgeon as an outpatient. Patient states that her pain has been increasing over the past week and is now notably worse after eating or drinking. She was NOT able to eat or drink yesterday given her pain. She states is in her epigastrium and right upper quadrant and radiates to her back. She has associated nausea but denies any vomiting nor fever or chills. She has had no chest pain or shortness of breath. She went to her regularly scheduled dialysis appointment earlier today and thinks that they did her normal run. She was at an outside ED earlier tonight, and discharged just a few hours ago after very thorough exam including reassuring labs and a CT KUB noting distended GB with a large stone, but no signs of acute choleycystitis. She went home and tried taking her medications but it worsened her pain and she began vomiting Related Data Home Medications Medication Instructions Recorded Confirmed Fish Oil (Fish Oil 500 MG Softgel) 500 mg PO DAILY #0 10/04/11 03/14/19 albuterol sulfate [Proventil HFA] 1 puff INH PRN #0 10/27/11 03/14/19 furosemide 40 mg PO DAILY #0 10/27/11 03/14/19 aspirin 81 mg PO DAILY 02/14/19 03/14/19 atorvastatin 20 mg PO DAILY 02/14/19 03/14/19 bupropion HCl 100 mg PO BID 02/14/19 03/14/19 colchicine 0.6 mg PO DAILY 02/14/19 03/14/19 hydralazine 100 mg PO Q8H 02/14/19 03/14/19 lisinopril 20 mg PO DAILY 02/14/19 03/14/19 multivitamin 1 tab PO DAILY 02/14/19 03/14/19 potassium chloride 20 meq PO DAILY 02/14/19 03/14/19 Previous Rx's Medication Instructions Recorded allopurinol 100 mg PO DAILY #30 tab 01/18/18 carvedilol [Coreg] 6.25 mg PO BID #60 tab 01/18/18 nystatin [Nystop] 1 applic TOPICAL BID #30 g 01/18/18 Allergies Allergy/AdvReac Type Severity Reaction Status Date / Time Penicillins [PENICILLINS] Allergy Mild Verified 03/14/19 14:25 Sulfa (Sulfonamide Allergy Mild Verified 03/14/19 14:25 Antibiotics) [SULFA (SULFONAMIDE ANTIBIOTICS)] Review of Systems Constitutional Constitutional: Denies chills, Denies fatigue, Denies fever(s), Denies frequent falls, Denies lethargy and Denies weakness Eyes Eyes: Denies change in vision, Denies eye discharge, Denies irritation and Denies loss of vision ENT Ears, Nose, Mouth, and Throat: Denies change in voice, Denies dizziness, Denies neck pain, Denies sore throat and Denies throat swelling Cardiovascular Cardiovascular: Denies chest pain, Denies irregular heart rhythm, Denies lightheadedness, Denies palpitations, Denies dyspnea, Denies dyspnea on exertion and Denies orthopnea Respiratory Respiratory: Denies cough, Denies dyspnea, Denies dyspnea on exertion and Denies wheezing Gastrointestinal Gastrointestinal: Reports abdominal pain, Denies change in bowel habits, Denies diarrhea, Reports nausea and Denies vomiting Musculoskeletal Musculoskeletal: Denies neck pain and Denies numbness Integumentary/Breasts Skin/Breast: Denies pruritus, Denies erythema, Denies rash and Denies wounds Neurologic Neurologic: Denies behavioral changes, Denies confusion, Denies dizziness, Denies frequent falls, Denies loss of vision, Denies numbness and Denies weakness Psychiatric Psychiatric: Denies anxiety, Denies behavioral changes, Denies confusion, Denies depression, Denies homicidal ideation and Denies suicidal ideation Endocrine Endocrine: Denies fatigue, Denies flushing and Denies palpitations Hematologic/Lymphatic Hematologic/Lymphatic: Denies easy bruising Allergic/Immunologic Allergic/Immunologic: Denies urticaria, Denies throat swelling and Denies wheezing Patient History Medical History (Updated 11/16/19 @ 03:33 by Chandan Ross DO) COPD (chronic obstructive pulmonary disease) (Acute) Diabetes mellitus type 2 in obese (Acute) Gout (Acute) Hypercholesterolemia (Acute) Morbid obesity (Acute) Traumatic hematoma of lower leg (Acute) Tuberculosis (Acute) Surgical History History of nephrectomy (Acute) S/P tonsillectomy and adenoidectomy (Acute) Status post surgery (04/29/08) Status post surgery (10/27/11) Family History Father No problems noted. Mother No problems noted. Brother No problems noted. Brother No problems noted. Social History household members: none Smoking Status: Never smoker alcohol intake: former Smoking Status: Never smoker alcohol intake frequency: holidays/special occasions only Substance Use Type: does not use Exam Narrative Exam Narrative: GENERAL: [78] year old patient appears stated age. Chronically ill. HEAD: Atraumatic. Normocephalic. EYES: Pupils equal round and reactive. Extraocular motions intact. No scleral icterus. No injection or drainage. ENT: Moist membranes. Nose without bleeding, purulent drainage. Throat without erythema, tonsillar hypertrophy or exudate. Airway patent. NECK: Trachea midline. Non tender CARDIOVASCULAR: Regular rate and rhythm. RESPIRATORY: No increased work of breathing. No rales or rhonchi noted GASTROINTESTINAL: Abdomen soft, tender in the epigastrium and right upper quadrant pain, nondistended. EXTREMITIES: No edema or joint tenderness. BACK: Nontender without deformity or crepitance. No flank tenderness. NEURO: AOx3. SKIN: No rash or erythema of visible areas Initial Vital Signs Initial Vital Signs: Vital Signs Temperature 97.8 F 11/15/19 23:46 Pulse Rate 71 11/15/19 23:46 Respiratory Rate 16 11/15/19 23:46 Blood Pressure 122/73 11/15/19 23:46 Pulse Oximetry 97 11/15/19 23:46 Course Orders Ordered: ED Orders 11/15/19 23:45 Complete Blood Count AUTO DIFF Stat Comprehensive Metabolic Panel Stat Lipase Stat 11/15/19 23:56 US abdomen complete Stat Discontinued Medications Al Hydrox/Mg Hydrox/Simethicone 20 ml/ Lidocaine HCl 15 ml 0 ml PO NOW ONE Stop: 11/16/19 01:05 Last Admin: 11/16/19 01:10 Dose: 35 ml Documented by: DANY Hydromorphone HCl (Dilaudid) 0.5 mg IV NOW ONE Stop: 11/16/19 02:49 Last Admin: 11/16/19 02:51 Dose: 0.5 mg Documented by: DANY Sodium Chloride (Normal Saline 0.9%) 1,000 mls @ 125 mls/hr IV CONT LOGAN Last Infusion: 11/16/19 05:11 Dose: 0 mls/hr Documented by: Admin: 11/16/19 02:52 Dose: 125 mls/hr Documented by: DANY Ondansetron HCl (Zofran Odt) 4 mg SL NOW ONE Stop: 11/16/19 01:05 Last Admin: 11/16/19 01:10 Dose: 4 mg Documented by: DANY Consultations Consultation #1: Dr. Trevizo (Gen Surgery) recommends admission, will likely need GB out. Admit to medicine Consultation #2: call to [facility] as we cannot admit here due to institutional policy against admission of HD patients. Dr. Bourgeois is happy to accept. Vital Signs Vital signs: Vital Signs - 8 hr 11/15/19 23:46 11/16/19 01:00 11/16/19 03:01 Temperature 97.8 F Pulse Rate 71 66 79 Respiratory Rate 16 20 Blood Pressure 122/73 Blood Pressure [Right Arm] 122/70 127/66 Pulse Oximetry 97 97 96 MDM - Abdominal Pain Lab Data Result diagrams: 11/16/19 00:35 11/16/19 01:10 Labs: Lab Results 11/16/19 11/16/19 Range/Units 00:35 01:10 WBC 10.4 (4.5-11.0) X10^3/uL RBC 3.91 L (4.0-5.2) X10^6/uL Hgb 13.3 (12.0-16.0) g/dL Hct 38.2 (36-46) % MCV 97.8 (80-100) fL MCH 34.1 H (26-34) PG MCHC 34.8 (30-36) % RDW 17.8 H (11.6-14.8) % Plt Count 229 (150-400) X10^3/uL Neut % (Auto) 88.7 H (50-75) % Lymph % (Auto) 5.5 L (25-40) % [place] % (Auto) 5.5 (3-14) % Eos % (Auto) 0.0 L (2-4) % Baso % (Auto) 0.3 (0-2) % Neut # (Auto) 9200 H (5838-5193) /uL Lymph # (Auto) 600 L (1118-6967) /uL [place] # (Auto) 600 (0-900) /uL Eos # (Auto) 0 (0-450) /uL Baso # (Auto) 0 (0-100) /uL Sodium 134 L (137-145) mmol/L Potassium 4.8 (3.4-5.1) mmol/L Chloride 99 (98-107) mmol/L Carbon Dioxide 25 (22-32) mmol/L BUN 11 (7-17) mg/dL Creatinine 1.88 H (0.52-1.04) mg/dL Estimated GFR 26.0 L (>60) mL/min BUN/Creatinine Ratio 5.9 L (6-22) Glucose 73 L (80-110) mg/dL Calcium 8.8 (8.4-10.2) mg/dL Total Bilirubin 1.3 (0.2-1.3) mg/dL AST 40 H (14-36) IU/L ALT 14 (<35) IU/L Alkaline Phosphatase 111 (38-126) U/L Total Protein 6.3 (6.3-8.2) g/dL Albumin 3.0 L (3.5-5.0) g/dL Globulin 3.3 (1.7-4.1) g/dL Albumin/Globulin Ratio 0.9 L (1.0-2.8) Lipase 75 (23-300) U/L [facility] Narrative Medical decision making narrative: Patient with severe RUQ pain and second ED visit of the day. She has known GB disease and symptoms worsen when she eat/drinks. She had thorough evaluation at outside facility this evening and went home and could not eat, drink, or take her medications as it greatly worsened her symptoms and she began vomiting. Evaluation here is very similar except her pain has been difficult to control and GI cocktail made it worse. She will need hospitalization for stabilization of her condition and additional evaluation. Possible GI/Gen Surgery consult, possible HIDA. Discharge Plan Departure Patient Disposition: [facility] Clinical Impression: Failure of outpatient treatment, Intractable abdominal pain, Biliary colic Discharge Date/Time: 11/16/19 05:00 Prescriptions: No Action Fish Oil (Fish Oil 500 MG Softgel) 500 mg PO DAILY Qty: 0 RF: 0 albuterol sulfate [Proventil HFA] 90 MCG/PUFF HFA aerosol inhaler 1 puff INH PRN Qty: 0 RF: 0 furosemide 40 MG tablet 40 mg PO DAILY Qty: 0 RF: 0 carvedilol [Coreg] 6.25 mg Tablet 6.25 mg PO BID Qty: 60 RF: 0 allopurinol 100 mg Tablet 100 mg PO DAILY Qty: 30 RF: 0 nystatin [Nystop] 100,000 unit/gram Powder 1 applic Topical BID Qty: 30 RF: 0 multivitamin Tablet 1 tab PO DAILY RF: 0 atorvastatin 20 mg tablet 20 mg PO DAILY RF: 0 lisinopril 20 mg tablet 20 mg PO DAILY RF: 0 aspirin 81 mg tablet,delayed release (DR/EC) 81 mg PO DAILY RF: 0 bupropion HCl 100 mg tablet sustained-release 12 hr 100 mg PO BID RF: 0 potassium chloride 20 mEq tablet,ER particles/crystals 20 meq PO DAILY RF: 0 hydralazine 50 mg tablet 100 mg PO Q8H RF: 0 colchicine 0.6 mg tablet 0.6 mg PO DAILY RF: 0 Referrals: Shamar Pettit MD [Primary Care Provider] -
--- NOTE | 2019-11-16 00:25 | PC.NURSE ---
LASHELL Morataya and LASHELL Siu attempted IV access and not able to obtain. Lab called and now at bedside.
[2019-11-16 00:57] LABS: Add Manual Diff / Slide Review NO; Basophils Absolute Auto 0 /uL (0-100); Basophils Percent Auto 0.3 % (0-2); Eosinophils Absolute Auto 0 /uL (0-450); Hematocrit 38.2 % (36-46); Hemoglobin 13.3 g/dL (12.0-16.0); Lymphocytes Absolute Auto 600 /uL (1100-4500); Lymphocytes Percent Auto 5.5 % (25-40); Mean Corpuscular HGB Conc 34.8 % (30-36); Mean Corpuscular Hemoglobin 34.1 PG (26-34); Mean Corpuscular Volume 97.8 fL (80-100); Monocytes Absolute Auto 600 /uL (0-900); Monocytes Percent Auto 5.5 % (3-14); Neutrophils Absolute Auto 9200 /uL (1500-7000); Neutrophils Percent Auto 88.7 % (50-75); Platelet Count 229 X10^3/uL (150-400); Red Blood Cell Count 3.91 X10^6/uL (4.0-5.2); Red Cell Distribution Width 17.8 % (11.6-14.8); White Blood Cell Count 10.4 X10^3/uL (4.5-11.0)
[2019-11-16 01:00] VITALS: BP 122/70; PULSE 66; RESP 20; O2SAT 97
[2019-11-16] MEDS: ONDANSETRON 4 MG ODT SL (01:10)
[2019-11-16] MEDS: MAG HYDROX/ALUMINUM/SIMETH SUS 20 ML, LIDOCAINE VISCOUS 2% 15 ML PO (01:10)
--- NOTE | 2019-11-16 01:19 | PC.NURSE ---
Patient drank about half of her GI cocktail. Stated she couldn't drink anymore. Pt states pain slightly better. I repositioned pt and she began to cry out again. I returned to room and pt states pain 10/10 and still declines the rest of her GI cocktail. Notified.
[2019-11-16 01:33] LABS: Alanine Aminotransferase 14 IU/L (<35); Albumin Globulin Ratio 0.9 (1.0-2.8); Alkaline Phosphatase 111 U/L (38-126); Aspartate Aminotransferase 40 IU/L (14-36); BUN Creatinine Ratio 5.9 (6-22); Bilirubin Total 1.3 mg/dL (0.2-1.3); Blood Urea Nitrogen 11 mg/dL (7-17); Calcium 8.8 mg/dL (8.4-10.2); Carbon Dioxide 25 mmol/L (22-32); Chloride 99 mmol/L (98-107); Globulin 3.3 g/dL (1.7-4.1); Glucose 73 mg/dL (80-110); HEMOLYSIS 46 (0-50); Lipase 75 U/L (23-300); Potassium 4.8 mmol/L (3.4-5.1); Sodium 134 mmol/L (137-145); Total Protein 6.3 g/dL (6.3-8.2)
[2019-11-16] MEDS: HYDROMORPHONE 0.5 MG INJ IV (02:51)
[2019-11-16] MEDS: SODIUM CHLORIDE 0.9% 1,000 ML 125 ML IV (02:52)
[2019-11-16 03:01] VITALS: BP 127/66; PULSE 79; O2SAT 96
== END 2019-11-16 05:00 | disposition short-term general hospital (02) ==
PROVIDERS: Emergency Provider Emergency Medicine; PCP Family Medicine
DX: K80.50 Calculus of bile duct without cholangitis or cholecystitis without obstruction (principal); R10.13 Epigastric pain
CPT/HCPCS: 36415; 76700; 80053; 83690; 85025; 96361; 96374; 99284; J1170